=== PATIENT | female | born 1940 | race Caucasian/White ===

== ENCOUNTER 2017-05-24 11:26 | Inpatient (IN) | payer OTHER ==
[~2017-05-24] VITALS: Ht 154.9 cm; Wt 50.4 kg
--- NOTE | ~2017-05-24 | PR ---
[place], [place] PROGRESS NOTE NAME: KIMBERLY STRINGER UNIT #: [id number] ROOM: 410 DOCTOR: DEON AGUILLONANTHONY Marquise BIRTHDATE: [birth year] DOS: 06/04/2017 SUBJECTIVE: The patient was seen in followup of acute kidney injury. Overall, she is doing about the same, continues to be acute, repeats the same questioning, tells me about 3 times that her father had colon cancer, does not understand that she is still requiring dialysis, and wants to go home. No plans for her abnormal urine and free light chains have been identified yet. According to reports, the patient's sister in the family just and they will be leaving to go to [place] for services this weekend. She is seen while undergoing dialysis #3. PHYSICAL EXAMINATION: VITAL SIGNS: 98.4, 76, 18, 158/78, 99%. GENERAL: Chronically ill appearing, weak, awake and answers questions questionably reliable. No acute stress. LUNGS: Clear bilaterally, no audible rales or wheeze. CARDIOVASCULAR: Regular rate. No audible rub. ABDOMEN: Soft, nontender, nondistended. EXTREMITIES: Without cyanosis or clubbing. Trace edema is present and improving. LABORATORY DATA AND DIAGNOSTICS: White blood cell count 3.7, hemoglobin 8.6, platelets 80,000 and stable. Sodium 134, potassium 4.2, chloride 98, bicarbonate 28, BUN 35, creatinine 6.82. Glucose 85. Calcium 8.3, bilirubin 0.7, AST 21, ALT 8, alkaline phosphatase 43, albumin 2.4. Total protein 5.9. 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 Continue 3 times a week dialysis until further discussions with family can be had and long-term outcome discussion is done. Given her poor intake and dementia history, the penitentiary success of dialysis will be very poor. Her consistent asking of dialysis and not wanting it in general portends a poor prognosis as well. Would recommend when the family arrive again that we consider potentially moving towards a comfort strategy. [place], [place] PROGRESS NOTE NAME: KIMBERLY STRINGER UNIT #: [id number] ROOM: 410 DOCTOR: ANTHONY CHAVARRIA MD BIRTHDATE: [birth year] ANTHONY CHAVARRIA MD CM:PNTRANS [id number] ANTHONY CHAVARRIA MD 06/05/17 0006 interface
--- NOTE | ~2017-05-24 | PR ---
[place], [place] PROGRESS NOTE NAME: KIMBERLY STRINGER UNIT #: [id number] ROOM: 410 DOCTOR: ANTHONY CHAVARRIA MD BIRTHDATE: [birth year] DOS: NEPHROLOGY PROGRESS NOTE SUBJECTIVE: The patient was seen in followup of severe renal failure. She continues to be sitting upright in a chair, not able to provide any reliable history or review of systems. She is nonverbal, non-communicative with me. Vital signs are otherwise stable. She had periods of tachycardia, which are improved. OBJECTIVE: VITAL SIGNS: Temperature 98.7, 87, 20. 148/90, 99% on room air. GENERAL: Otherwise well-developed, well nourished, sitting in chair, nonverbal. LUNGS: Clear, decreased air entry secondary to effort. HEENT: Sclerae are anicteric. Oropharynx is slightly dry. NECK: No JVD or lymphadenopathy. ABDOMEN: Benign. No rebound. No guarding. EXTREMITIES: Lower extremities with 2+ edema, probably partially at least because she is sitting in a chair for a prolonged period. LABORATORY DATA AND DIAGNOSTICS: White blood cell count 5, hemoglobin 11, platelets 58. Sodium 134, potassium 4.2, chloride 195, bicarbonate 21, BUN 109, creatinine 13.6 and stable, EGFR 3, glucose 102, calcium 8.8, phosphorus 7.1, magnesium 2.1. ASSESSMENT AND PLAN: Acute kidney injury/chronic kidney disease. 07/23/2014 showed creatinine of 0.8. Current serologic workup is pending. I do not see if there is an acute discovery of chronic kidney disease here, but certainly that is a possibility as well as glomerulonephritis. Given her dementia and poor mental status, which does not appear to be completely new phenomenon, I would avoid invasive procedure such as biopsy and plan for dialysis initiation, which the family and son had agree to over the weekend. Access is not yet possible as Interventional Radiology is not here today. Discussed with the nurse to ensure that from a hematologic standpoint, such as thrombocytopenia that she can get the procedure done, so that we can initiate dialysis tomorrow. She is not going to be able to go home and live by herself anymore. I suspect that time limited trial of dialysis is the best course of action. If there is any significant worsening in her clinical status, withdrawal is not unreasonable. Followup for her cytopenia is by Hematology and hypertension. ____ started on dialysis with hyperphosphatemia, we will need to follow with addition of dialysis and phosphorus binder, though she is not eating at all it seems. She had a fairly large ulcer seen on gastrointestinal. They have started Carafate in short term. This is probably okay, but I do like to use this in renal failure patients for more than about a week given possibilities of accumulation of toxic ____. [place], [place] PROGRESS NOTE NAME: KIMBERLY STRINGER UNIT #: [id number] ROOM: 410 DOCTOR: ANTHONY CHAVARRIA MD BIRTHDATE: [birth year] ANTHONY CHAVARRIA MD CM:PNTRANS [id number] ANTHONY CHAVARRIA MD 05/31/17 1553 interface
--- NOTE | ~2017-05-24 | O ---
[place], [place] OPERATIVE NOTE NAME: KIMBERLY STRINGER UNIT #: [id number] ROOM: 410 DOCTOR: ALEXANDR HERNANDEZ MD BIRTHDATE: [birth year] DOS: 05/28/2017 GASTROENDOSCOPIC REPORT. INDICATIONS: A 77-year-old patient who has presented with chief complaint of anemia, thrombocytopenia, GI bleed, guaiac positivity, drop in H and H. Hematology is following up on the patient and we have been asked for assessment of the anemia. We have transfused the patient one unit 6 pack of platelets. PAST MEDICAL HISTORY: Hyperglycemia, metabolic encephalopathy, history of renal insufficiency. PAST MEDICAL HISTORY: Hypertension, dementia, thrombocytopenia. PAST SURGICAL HISTORY: None. SOCIAL HISTORY: Nonsmoker, nonalcohol consumer. FAMILY HISTORY: Noncontributory. ALLERGIES: No known medication. PROCEDURE: Today's procedure part of investigation is panendoscopy plus biopsy. PREMEDICATION: Versed and Diprivan. SCOPE: Olympus forward-viewing gastroscope Q10 video. REPORT: After putting the patient in the left lateral position and after application of lubricant to the scope, the scope was introduced; thereafter, under direct visualization, advanced through the length of esophagus without difficulty. A small hiatal hernia was noticed. Gastric pouch was entered. Numerous spots of degraded blood in the gastric pouch consistent with superficial hemorrhagic gastritis, erosions was identified, photographed and biopsied. Biopsy from antrum was obtained. Duodenal bulb, second and third part within normal limits. The patient extubated, tolerated the procedure well. IMPRESSION: Superficial hemorrhagic gastritis, gastric erosions status post biopsy, presence of blood in the stomach, small hiatal hernia. PLAN AND DISCUSSION: Protonix 40 mg 1 every day, Carafate 1 gram before meals and at bedtime, back to soft to regular as tolerated and clinical reassessment. Thank you very much indeed. [place], [place] OPERATIVE NOTE NAME: KIMBERLY STRINGER UNIT #: [id number] ROOM: 410 DOCTOR: ALEXANDR HERNANDEZ MD BIRTHDATE: [birth year] ALEXANDR HERNANDEZ MD CM:JASONECORD:OPERATIVE NOTE [id number] ALEXANDR HERNANDEZ MD 05/29/17 0544 interface
--- NOTE | ~2017-05-24 | CON ---
[place], [place] REPORT OF CONSULTATION NAME: KIMBERLY STRINGER UNIT #: [id number] ROOM: 410 DOCTOR: SHANNA REYES DO BIRTHDATE: [birth year] DOS: 05/25/2017 REASON FOR CONSULTATION: Acute kidney injury. HISTORY OF PRESENT ILLNESS: A 77-year-old female, extremely poor historian, has a prior history of hypertension, hyperlipidemia, dementia, glaucoma, paranoid schizophrenia, has not seen a physician in many, many years and does not take any medications either, presents to this institution with her family due to increased confusion. Apparently, she has been not caring for herself at home, eating very poorly if at all, becoming increasingly confused as noted as well. Chronically forgetful, unclear if this is any different. ____ approximately a 15-pound weight gain over the preceding two and half months, but per the family, as they have been bringing her in food the past few weeks, she has gained a few pounds. Family feels as they have been monitoring the food in the refrigerator as well as her garbage and utensils in the kitchen were, that she has not been eating at all, but other than this, they are unaware of any specific complaints other than some chronic abdominal pain which she states she gets when she "eats too much." The patient herself states that she feels quite well and everything has been perfectly fine. She feels her appetite has been fine here, had been fine up to this admission and denies any complaints other than that chronic abdominal pain that she already noted. She denies any hematochezia or melena, any nausea, vomiting or diarrhea, fevers, chills, rigors, diaphoresis, chest pain, palpitations, orthopnea, PND or dyspnea. She denies any claudication. She denies hematuria. She denies froth in her urine. She denies any difficulty voiding, denies symptoms of colic, or pass calculi. She denies rash. She apparently uses [id number] NSAIDs, but only rarely, has not been exposed to other potential nephrotoxic agents. On presentation to the Emergency Room, she was afebrile, hemodynamically stable, saturating at 99% on room air. ADMISSION LABORATORY: Notable for BUN and creatinine at 144 and 14.1. Chemistry: Total protein was elevated at 8.7 with albumin of 3.7 with normal corrected calciums. White count 4.5 with hemoglobin of 9.0, normal differential. Urine chemistries obtained in the Emergency Room showed a sodium of 73 with a creatinine of 64.9 and total protein 142.4, total protein to creatinine ratio was 2.19. Urinalysis from the Emergency Room did show 2+ protein with 2+ blood and 1+ leukocyte esterase with 11-15 wbc's, 4+ bacteria. Note, she had to be straight catheterized for this specimen. Specific gravity was 1.010. A previous urinalysis performed in July 2014, was negative for protein, did show rbc's, wbc's and epithelial cells. Circumstances surrounding specimen's acquisition is unclear but was performed in the Emergency Room. In the Emergency Room, she underwent imaging, subsequently undergoing a CT scan of the head, which showed no acute anomalies but did note small vessel ischemic disease. CT scan of the abdomen and pelvis was performed, nodular thickening was noted involving the right major fissure. Consolidated granulomas were also noted. No bony lesions were noted. The abdomen was otherwise unremarkable. She has since undergone a renal ultrasound last evening showing symmetric kidneys, right measuring 10.9, left measuring 10.9, with increased echotexture without any hydronephrosis or masses appreciated. The bladder was partially distended at that time. She has been maintained on IV fluids and admitted with normal saline at 80 mL an hour. Followup labs from today show her renal [place], [place] REPORT OF CONSULTATION NAME: KIMBERLY STRINGER UNIT #: [id number] ROOM: [facility] DOCTOR: SHANNA REYES DO BIRTHDATE: [birth year] function slightly improved with creatinine 13.40, BUN of 136; however, bicarbonate has dropped to 19. Remaining chemistries today now show a calcium of 8.0 with an albumin of 2.7 with a normal corrected calcium, total protein of 6.6. Hemoglobin has decreased down to 7.5 with hematocrit 22.3. Since being admitted, she has remained afebrile, hemodynamically stable. Apparently, ate quite well ____ of her meal, but only ate 10% of her meal today. Total urine output since being admitted has been 805 mL with a total intake of 2345 mL. The patient is producing approximately ____ of urine overnight, but it seems to have fluctuated throughout her stay thus far. PAST MEDICAL HISTORY: As above. ALLERGIES: No known drug allergies. MEDICATIONS: Vitamin D 1000 International Units p.o. every day, B12 1000 mcg IM every day, Rocephin 1 gram IV every day, normal saline IV at 80 mL an hour. SOCIAL HISTORY: She resides at home. FAMILY HISTORY: Noncontributory. REVIEW OF SYSTEMS: See HPI. Full 10-point review of systems was performed, otherwise unremarkable. PHYSICAL EXAMINATION: VITAL SIGNS: Blood pressure is 142/64, pulse is 62, respirations 18, and temperature 97.9 degrees Fahrenheit. Weight is 42.2 kg. GENERAL: A thin elderly female, awake, alert, oriented to person only, in no apparent distress. HEAD AND NECK: Bitemporal wasting is noted. Conjunctivae are pink and moist. Oral mucosa is pink, moist. No carotid bruit, thyromegaly, adenopathy or JVD appreciated. LUNGS: Clear to auscultation and percussion. HEART: Regular without S3 or rub appreciated. There is a 2/6 systolic ejection murmur as well as a 2/6 holosystolic murmur noted. ABDOMEN: Scaphoid. Positive bowel sounds x 4, nontender, without CVA tenderness noted. No rebound, guarding or rigidity noted. No abdominal flank bruits appreciated. No mutations. Grossly nonfocal. No asterixis appreciated. EXTREMITIES: No clubbing, cyanosis or edema noted. Pulses are +2 bilateral as well as right dorsalis pedis, trace left dorsalis pedis. SKIN: Dry without rash, ulcers, lesions, or petechiae appreciated. LABORATORY DATA: From today, WBC is 4.5, hemoglobin 7.5, hematocrit 22.3, platelets are 56,000. Sodium is 135, potassium 5.5, chloride 105, CO2 of 19, BUN of 136, creatinine 15.40, glucose was 93, phosphorus 4.9, magnesium was 2.4, calcium 8.0, albumin was 2.7, total protein 6.6, ALT is 7, AST is 12, and alkaline phosphatase 34. ASSESSMENT AND PLAN: [place], [place] REPORT OF CONSULTATION NAME: VICENTEKIMBERLY PERRIN UNIT #: [id number] ROOM: 410 DOCTOR: SHANNA REYES DO BIRTHDATE: [birth year] 1. Acute kidney injury. History as noted, past known creatinine was from 2013 when her creatinine was 0.8 from a hospital stay ____ 07/2014. Unclear if current values represent acute discovery of chronic kidney disease versus an acute process. She may have been somewhat volume depleted on admission, though her fraction excretion of sodium and urinalysis do not support this hypothesis. However, history is compelling. ____ is often kept very hot per the patient's family. For the chronic kidney disease, it is unclear what her baseline is. She currently does not exhibit any specific uremic signs or symptoms. The forgetfulness has apparently been longstanding in duration. Potential causes of chronic kidney disease include hypertensive nephrosclerosis. Our initial thought is that this could represent an underlying monoclonal gammopathy, especially in light of the elevated total protein to albumin ratios. CT scan did not show any evidence of any lesions in her bones and calcium levels are normal. 2. Hypertension. Blood pressure under satisfactory control. 3. Pancytopenia of unclear etiology. RECOMMENDATIONS: Agree with current management including current intravenous fluids. We will follow intake and output as well as renal function and electrolytes closely as well as hemoglobin and hematocrit. Given her anemia, we will check an SPEP ____ and serum free light chains with guaiac stools x 3. Check iron stores, also B12 and folate level. Consider Hematology/Oncology consult as well. Currently, there is no immediate need for renal placement therapy. The issue of dialysis was discussed with her family and they are agreeable if necessary. I did explain the concept of dialysis in detail to the patient. She did not offer whether she would be willing to accept this or not. She is incompetent in making a decision, but will need her cooperation to proceed. Thank you for allowing us to participate in the care of this patient. SHANNA REYES DO CM:CONSTR:REPORT OF CONSULTATION 1223 05/26/17 0252 interface
--- NOTE | ~2017-05-24 | CON ---
[place], [place] REPORT OF CONSULTATION NAME: KIMBERLY STRINGER UNIT #: [id number] ROOM: 410 DOCTOR: ALON NAVARRETE BIRTHDATE: [birth year] DOS: 06/05/2017 HISTORY OF PRESENT ILLNESS: This is a followup to Dr. Rodarte's assessment of the patient. At that time, she was to be discharged to one of our nursing facilities, I think [place] where we were going to follow up with her. He had initially diagnosed her with major depression, recurrent to rule out some psychotic features. She was then seen by Dr. Marcus after discussing with family that she has had some mild dementia along with history of some paranoid schizophrenia and he deemed her not competent to make informed health decisions. She can get quite agitated at night. When I walked into the room, she was trying to get dressed with her IVs saying she was going home, she does not have insurance. She is not a good historian. PLAN: I am going to make some adjustments to her medications, one of them includes; I am going to go ahead and start her on some Exelon and I am going to change her Risperdal from 0.5 at night to 0.5 twice a day to see if I can take the edge off her little bit and break some of the psychosis add the Risperdal to see if I can again help a little bit with her cognition, decrease some of her behaviors and go from there and then follow up with nursing and see if the plan is still to discharge her to a care home facility. TREY NAVARRETE CNP CM:CONSTR:REPORT OF CONSULTATION 1128 06/05/17 2225 interface
--- NOTE | ~2017-05-24 | CON ---
[place], [place] REPORT OF CONSULTATION [id number] UN[facility] #: [id number] ROOM: 410 DOCTOR: TANNER LEIGH MD BIRTHDATE: [birth year] DOS: 05/27/2017 HISTORY OF PRESENT ILLNESS: The patient is a pleasant 77-year-old [place]og[place] woman who presented to the Emergency Department with increased confusion over the past 3 weeks as per the records and the patient's son. Subsequently, she was admitted and treated accordingly. On routine CBC examination, she was found to be severely anemic and consulted for further evaluation and management. As per the son, she had unintentional weight loss of about 14 pounds over the past 2-1/2 months. PAST MEDICAL HISTORY: Dementia, glaucoma, hyperlipidemia, hypertension, leukopenia, chronic schizophrenia, and thrombocytopenia. PAST SURGICAL HISTORY: No pertinent surgical history. SOCIAL HISTORY: No smoking, drinking, or drug abuse. FAMILY HISTORY: Father has emphysema disease, cause unknown. Mother has history of heart disease, at age 50-60. ALLERGIES: No known allergies. MEDICATIONS: As per the records. REVIEW OF SYSTEMS: CONSTITUTIONAL: No chills. No fatigue. No fever. No loss of appetite. No night sweats. No weakness. No weight loss. HEENT: No trouble swallowing. No loss of smell. No loss of hearing. No double vision. No pain. No discharge. ENT AND RESPIRATORY: No wheeze. No sore throat. No change in voice. No hearing loss. No nose bleed. No cough. No trouble breathing through nose. No shortness of breath. No coughing up blood. No epistaxis. CARDIOVASCULAR: No chest pain. No dizziness. No irregular heartbeat. No leg edema. No pain in legs while walking. No palpitations. No shortness of breath. DERMATOLOGIC: No acne. No hives. No laceration. No mole. No rash. ENDOCRINE: No cold intolerance. No diabetes. No fatigue. No hot flashes. No polydipsia. No polyuria. No urinating frequently. No weight loss. HEMATOLOGIC AND LYMPH: No fatigue. No easy bruising. GASTROENTEROLOGIC: No change in bowel habits. No indigestion. No frequent bloating. No vomiting blood. No abdominal cramping. No nausea. No heartburn. No vomiting. No abdominal pain. No dysphagia. No diarrhea. No constipation. No blood in stool. FEMALE REPRODUCTIVE: No vaginal itching. No difficulty urinating. No heavy periods. No dyspareunia. No sexually active. No dysmenorrhea. No pelvic pain. No breast pain. No nipple discharge. No abnormal vaginal discharge. No hot flashes. MUSCULOSKELETAL: No back pain. No muscle pain or weakness. No neck pain. No tingling/numbness. No swelling/bruising. No osteoporosis treatment. OPTHALMOLOGIC: No double vision. No diminished vision. No loss of vision. [place], [place] REPORT OF CONSULTATION NAME: KIMBERLY STRINGER UNIT #: [id number] ROOM: [facility] DOCTOR: TANNER LEIGH MD BIRTHDATE: [birth year] UROLOGIC: No dysuria. No frequent nighttime urination. No irregular periods. No pain with urination. No difficulty urinating. No blood in urine. No frequent urination. No urinary incontinence. NEUROLOGIC: No loss of sensation in specific body area. No vertigo. No burning pain in feet. No trouble with balance. No trouble with coordination. No loss of consciousness. No loss of feeling/power. No confusion. No headache. No tingling/numbness. PSYCHOLOGIC: No tinnitus. No headaches. No shortness of breath. No weight decrease. No nausea. No vomiting. No abdominal discomfort. No constipation. No diarrhea. No depression. No anxiety. PHYSICAL EXAMINATION: GENERAL: Pleasant woman in no apparent distress. VITAL SIGNS: Stable. She is afebrile. Blood pressure is 153/53, respiratory rate 18, pulse 68, temperature 97.6. HEENT: Oral mucosa appears intact. The external ears are normal in appearance. Nares are patent without lesions, exudates, erythema, or inflammation. Tongue is symmetrical. Uvula is midline. NECK AND THYROID: Neck supple without palpable masses. Trachea is midline. No thyromegaly. No carotid bruit or JVD. BREASTS: Normal. Nipples unremarkable. No drainage. No lumps felt on either side. HEART: Normal S1, S2, without significant murmur, rub, or gallop. LUNGS: Clear to auscultation and percussion with good air entry bilaterally. The patient is breathing easily without the use of accessory muscles. Diaphragmatic excursions are intact. ABDOMEN: No costovertebral angle tenderness. Soft. No organomegaly or masses. Nontender. No hernias present. Liver and spleen are not palpable. LYMPHATIC: No adenopathy noted in the cervical, supraclavicular, axillary, or inguinal regions. NEUROLGIC: Nonfocal. Oriented to person, place, and time. MENTAL STATUS: Appropriate for mood and affect. PERIPHERAL PULSES: No varicosities. Femoral and pedal pulses are palpable. EXTREMITIES: Without cyanosis, clubbing, or edema. No gross anomalies. LABORATORY DATA: Sodium 135, potassium 5.1, chloride 100, bicarbonate 22, BUN 126, creatinine 12.90. AST is 10, ALT is less than 6, total bili is 0.4. White count of 4.2, hemoglobin 6.7, hematocrit 19.7, MCV 87.6, and platelets of 52,000. ASSESSMENT: 1. Pancytopenia of unknown etiology. 2. Severe anemia. 3. Acute renal failure and acute kidney failure. 4. Dehydration. 5. Vitamin B12 deficiency. PLAN: We are waiting for GI evaluation to be done, probably will be needing EGD and colonoscopy at the same time. Initial workup for thrombocytopenia and anemia has been ordered. We will wait for the workup to come back and depending [place], [place] REPORT OF CONSULTATION NAME: KIMBERLY STRINGER UNIT #: [id number] ROOM: 410 DOCTOR: TANNER LEIGH MD BIRTHDATE: [birth year] on that, further intervention. In the meantime, we will review old records. I had detailed discussion with the patient about it, seemed to understand it. Soon or later, she may also need CAT scan. Ample time was given to the patient to ask me questions. We will follow. Thanks for consulting and letting me participate in the care of this interesting patient. TANNER LEIGH MD CM:CONSTR:REPORT OF CONSULTATION 1516 05/28/17 0846 interface
--- NOTE | ~2017-05-24 | PR ---
[place], [place] PROGRESS NOTE NAME: KIMBERLY STRINGER UNIT #: [id number] ROOM: 410 DOCTOR: ERIC ONEALSHANNA BIRTHDATE: [birth year] DOS: 05/26/2017 SUBJECTIVE: The patient is more oriented today. Apparently, she now knows that she is in the hospital in [place], but did not know the name of the hospital. She states it is 2017, but believes it is September. Reportedly, she has been eating quite well without any nausea, vomiting or diarrhea. She denies orthopnea, PND or dyspnea. PHYSICAL EXAMINATION: VITAL SIGNS: Blood pressure is 144/55, pulse is 75, respirations 18, temperature 98 degrees Fahrenheit. GENERAL: A cachectic appearing female, awake, alert, oriented to person. No apparent distress. LUNGS: Clear to auscultation and percussion. HEART: Regular without S3, rub or murmur. A 2/6 holosystolic ejection murmur as noted yesterday is unchanged. ABDOMEN: Soft, positive bowel sounds x4. NEUROLOGICAL: Negative for asterixis. EXTREMITIES: No clubbing, cyanosis or edema noted. LABORATORY DATA: From today, WBC 4.6, hemoglobin 7.7, hematocrit 22.6, platelets are 59,000. Iron is 92 with TIBC of 193 and percent saturation of 57%, ferritin is 334. B12 is greater than 2000. RBC folate is pending. Sodium is 137, potassium 5.2, chloride 102, CO2 of 21, BUN of 126, creatinine 13.3, glucose is 76, calcium is 8.0, albumin of 2.6, corrected calcium of 9.1, total protein 6.6, ALT is less than 6, AST is 11, alkaline phosphatase is 36, total bilirubin is 0.5. SPEP, SIEP, UIEP and serum free light chains are pending. Stool for occult blood positive. IMPRESSION AND PLAN: 1. Acute kidney injury. No appreciable improvement in renal function thus far. Clinically, the patient appears to be euvolemic. Workup today has been unremarkable. This may be acute discovery of chronic kidney disease. Urine output has been somewhat difficult to quantify as she has been incontinent, but appears to be decreasing. Her electrolytes are all satisfactory. Not uremic at present. 2. Proteinuria of unclear etiology. Past UA is otherwise bland. Doubt underlying connective tissue disorder. 3. Hypertension. Blood pressure under fair control. 4. Pancytopenia of unclear etiology. The patient is anemic. GI was planning on possibly performing a panendoscopy. Of note, however, the patient's iron stores along with B12 levels appeared satisfactory. I feel the Hemoccult positive stools are incidental and pancytopenia may be reflective of an underlying bone marrow disorder. RECOMMENDATIONS: Continue current management including current intravenous fluids. We will follow renal function and electrolytes closely. No immediate need for renal replacement therapy. Await results of pending studies. We will check renal ultrasound as the patient may have been volume depleted at the time of the initial renal ultrasound just to again confirm hydronephrosis is not [place], [place] PROGRESS NOTE NAME: SIOMARAKIMBERLY Paulo UNIT #: [id number] ROOM: [facility] DOCTOR: SHANNA REYES DO BIRTHDATE: [birth year] present. Once again suggest a Hematology/Oncology consult given her pancytopenia. SHANNA REYES DO CM:PNTRANS [id number] SHANNA REYES DO 05/27/17 1017 interface
--- NOTE | ~2017-05-24 | PR ---
[place], [place] PROGRESS NOTE NAME: KIMBERYL STRINGER UNIT #: [id number] ROOM: 410 DOCTOR: TANNER LEIGH MD BIRTHDATE: [birth year] DOS: 05/31/2017 SUBJECTIVE: The patient is doing better. She is alert and responsive. REVIEW OF SYSTEMS HEENT: No trouble swallowing. No double vision. No loss of vision. No pain. ENT AND RESPIRATORY: No wheeze. No change in voice. No cough. No shortness of breath. No coughing up blood. No epistaxis. CARDIOLOGIC: No chest pain. No dizziness. No irregular heartbeat. No leg edema. No palpitations. No shortness of breath. HEMATOLOGIC AND LYMPH: No past transfusion. No fatigue. No loss of appetite. No easy bruising. GASTROENTEROLOGIC: No change in bowel habits. No vomiting blood. No abdominal cramping. No nausea. No vomiting. No diarrhea. No constipation. No blood in stool. FEMALE REPRODUCTIVE: No dyspareunia. No pelvic pain. MUSCULOSKELETAL: No back pain. No muscle pain or weakness. No tingling/numbness. UROLOGIC: No pain with urination. No difficulty urinating. No frequent urination. NEUROLOGIC: No burning pain in feet. No trouble with coordination. No loss of consciousness. No headache. No tingling/numbness. No memory loss. PHYSICAL EXAMINATION: GENERAL: She is a pleasant woman in no apparent distress. VITAL SIGNS: Blood pressure 148/90, respirations 20, pulse 87, temperature 98.7. HEENT: Normocephalic, atraumatic NECK AND THYROID: Supple. No JVD, thyromegaly, or lymphadenopathy. HEART: Normal S1, S2. Regular rate and rhythm. LUNGS: Clear to auscultation and percussion. ABDOMEN: Soft. Nontender, nondistended. Bowel sounds present. EXTREMITIES: Normal ROM. No clubbing. No edema. LABORATORY DATA: Sodium 134, potassium 4.2, chloride 95, bicarbonate 21, EGFR is 3. White count of 5.0, hemoglobin 11.0, hematocrit 32, platelet count of 58,000. SPEP, UPEP are pending. Platelet antibody direct and indirect were negative. Haptoglobin was 101. TIBC of 193, ____ 85, ferritin was 424.1, folic acid 11.0. ASSESSMENT: 1. Anemia of chronic disease. 2. Thrombocytopenia of unknown etiology. 3. Urinary tract infection. 4. Acute renal failure. PLAN: Her platelets are low, workup so far is negative, and will keep a close watch at this time and if it does not improve, then she may need further evaluation including a bone marrow biopsy if not done. I had detailed discussion with the patient about it, seemed to understand. [facility], [facility] are [place], [place] PROGRESS NOTE NAME: KIMBERLY STRINGER UNIT #: [id number] ROOM: 410 DOCTOR: TANNER LEIGH MD BIRTHDATE: [birth year] pending at this point. Ample time was given to the patient to ask me questions. TANNER LEIGH MD CM:PNTRANS [phone] TANNER LEIGH MD 06/01/17 0452 interface
--- NOTE | ~2017-05-24 | CON ---
[place], [place] REPORT OF CONSULTATION NAME: KIMBERLY STRINGER UNIT #: [id number] ROOM: 410 DOCTOR: ALON NAVARRETE BIRTHDATE: [birth year] DOS: 06/06/2017 SUMMARY OF VISIT: The patient assessed in her room. I discussed in length with the nursing staff regarding the patient. They did have to call me late yesterday afternoon because of increased agitation and behaviors and I ordered p.o. or IM Ativan p.r.n. and Geodon p.o. or IM p.r.n. for behaviors. They have only had to use the Ativan, but it appears from 3:00 p.m. every day, she becomes quite behavioral almost consistent with sundowning. They have talked to the son, the patient has some history of, it looks like multiple myeloma, and at one point in time, it is recommended that she goes on to palliative to care, probably need to follow up on that. Also the patient is requiring regular hemodialysis. Looks like the reason why she is not on the Behavioral Health Unit is because we were able to remove her from the unit for hemodialysis since it is a secure unit. PLAN: Since the patient is exhibiting symptoms consistent with sundowning, I am going to go ahead and order Vistaril 50 mg at 2 p.m. to see if I can head off the 3-4 p.m. sundowning to kind of take the edge off of it. She has Risperdal b.i.d. on board and when needed the Ativan has been effective in calming her down. So I am trying to keep this as simple as possible without overly sedating her, but I also do not want her pulling out her lines and excess speaking like she does in her sundowning behaviors in the afternoon. Let us see how the Vistaril does and we can go from there. TREY NAVARRETE CNP CM:CONSTR:REPORT OF CONSULTATION 1009 06/07/17 0800 interface
--- NOTE | ~2017-05-24 | CON ---
[place], [place] REPORT OF CONSULTATION NAME: KIMBERLY STRINGER UNIT #: [id number] ROOM: 410 DOCTOR: NURIA POTTS ED.D (ALINA) BIRTHDATE: [birth year] DOS: 05/31/2017 HISTORY OF PRESENT ILLNESS: The patient is a 77-year-old female who is presently on the 4th floor at [facility]. She states she is , but I believe her actually is . She has several sons, one of whom, Nader, was with me throughout the interview. The patient states she has many brothers and sisters, but did not know the number. Her parents are both . She worked for many years at [employer] in [place], [place]. She does not have a family physician and her medical history is pertinent for urinary tract infection, renal failure, metabolic encephalopathy, vitamin B deficiency, dehydration, dementia, hypertension, glaucoma, hiatal hernia and aortic stenosis. This patient was awake, alert and oriented to person only. I asked her where she was and she states said that she is in , [place]. I asked her what year it was, and she did indicate it was 2017, but she had no idea of the month. She is stating that it was August. When I continued to ask her age, she stated that she was 89 years old, even though she is only 77 years old. Her son was with us during the interview and she had no idea how old he was and she had no idea where he lived. He does live nearby, but she had no idea where he lived. She is clearly not competent to make informed healthcare decisions. She is not safe to return home and they are going to make long-term care arrangements for this patient. She was admitted to behavioral health unit under Dr. Rodarte and treated for paranoid schizophrenia, although her son said she has been paranoid for many years, but she also has severe memory loss in addition to her paranoia. She was dehydrated with the urinary tract infection, but that has cleared and she has significant memory deficits. DIAGNOSES: 1. Major neurocognitive disorder - Alzheimer's disease. 2. History of paranoid schizophrenia. RECOMMENDATIONS: 1. In my opinion, this patient is not competent to make informed healthcare decisions and all decisions should be made by her family or her healthcare surrogate. 2. The patient will probably need long-term care. Thank you very much for this consult. NURIA POTTS ED.D CM:CONSTR:REPORT OF CONSULTATION 1642 05/31/17 8167 interface JOSY ALMODOVAR DO
--- NOTE | ~2017-05-24 | PR ---
[place], [place] PROGRESS NOTE NAME: [facility]LY [facility]ER [id number] UNIT #: [id number] ROOM: 410 DOCTOR: BISMARK MEDEROS MD BIRTHDATE: [birth year] DOS: 06/01/2017 CARDIOLOGY PROGRESS NOTE SUBJECTIVE: The patient was seen at her bedside today. No one was available from the family at the time of my visit. She was lying in a position on her right side in bed and did not respond to spoken commands. She was breathing easily. PHYSICAL EXAMINATION: VITAL SIGNS: Pulse is 71 and regular, blood pressure 134/48. She is afebrile. She weighs 42.2 kg and has a body mass index of 17.6. IMPRESSION: 1. Critical aortic stenosis. 2. Gastrointestinal bleeding. 3. Acute renal failure. The patient will probably need dialysis in the very near future. 4. Essential hypertension. 5. Dementia. PLAN: The patient would benefit long-term from aortic valve replacement, but her neuropsychiatric status makes an invasive management strategy less attractive. Once her sensorium improves, we could proceed with further cardiac workup including catheterization and valve replacement in the future, but for now I think that she should be treated with very conservative medical therapy only. Cardiology will sign off and we will remain available to see her if needed. We thank the hospitalist physicians for asking our advice regarding her care. BISMARK MEDEROS MD CM:PNTRANS [id number] BISMARK MEDEROS MD 06/02/17 1546 interface
--- NOTE | ~2017-05-24 | PR ---
[place], [place] PROGRESS NOTE NAME[id number] UNIT #: [id number] ROOM: 410 DOCTOR: BISMARK MEDEROS MD BIRTHDATE: [birth year] DOS: 05/31/2017 CARDIOLOGY PROGRESS NOTE SUBJECTIVE: The patient was seen at her bedside today. No family was available at the time. She is sitting at the side of the bed and appears comfortable. She does not appear to be dyspneic or in any pain. She denied feeling lightheaded or nauseous or having any palpitations. Earlier today, she was noted to have a rapid heart rate of about 150. Review of monitor strips show that she did have a short episode of paroxysmal atrial fibrillation. PHYSICAL EXAMINATION: VITAL SIGNS: Today pulse is 100 and regular, blood pressure is 103/77. She is afebrile. NECK: Supple. She has palpable carotids with slow upstrokes bilaterally. She has no jugular distention. LUNGS: Respirations are unlabored. Her chest has decreased breath sounds at the bases, but is otherwise clear. HEART: Has a regular rhythm. She has a grade 4/6 late peaking systolic ejection murmur along the left sternal border. The second heart sound is obscured. The PMI is displaced slightly laterally. There is no precordial thrill. EXTREMITIES: Showed trace edema. Pedal pulses are absent. LABORATORY DATA: Hemoglobin today is 11.0 after transfusion, white count is 5000, platelet count 58,000. INR 1.0. Sodium 134, potassium 4.2, BUN 109, creatinine 13.6. IMPRESSION: 1. Critical aortic stenosis. 2. Gastrointestinal bleeding. 3. Acute renal failure. The patient is approaching the need for dialysis. 4. Essential hypertension. 5. Dementia. PLAN: In her current state, the patient is not a candidate for aggressive cardiac evaluation and management; however, if her neurologic condition improves and her family desires it, we could consider catheterization and possible valve replacement in the future. For now; however, I think that stabilization of her other medical problems including her urinary tract infection and acute renal failure is primary. As noted, once her sensorium clears as much as possible, we can decide whether or not she would be a candidate for catheterization and valve replacement. We will continue to follow her with her primary physicians and we thank the hospitalist for asking our advice regarding her care. [place], [place] PROGRESS NOTE NAME: KIMBERLY STRINGER UNIT #: [id number] ROOM: 410 DOCTOR: BISMARK MEDEROS MD BIRTHDATE: [birth year] BISMARK MEDEROS MD CM:PNTRANS [id number] BISMARK MEDEROS MD 06/02/17 1558 interface
--- NOTE | ~2017-05-24 | PR ---
[place], [place] PROGRESS NOTE NAME: KIMBERLY STRINGER UNIT #: [id number] ROOM: 410 DOCTOR: EULOGIO STEPHEN MDUEL Hari BIRTHDATE: [birth year] DOS: 05/29/2017 SUBJECTIVE: The patient was seen and examined. She is awake and alert. She denies any major complaints. She denies shortness of breath. She denies nausea or vomiting. She is receiving IV fluids and appears comfortable. She was not wearing oxygen. MEDICATIONS: Reviewed. PHYSICAL EXAMINATION: VITAL SIGNS: Temperature 98.7, pulse 68, respirations 18, blood pressure 140/56. HEENT: Shows no JVD. LUNGS: Clear. No wheezing or rales. HEART: Normal S1, S2. There was a questionable murmur as well as a questionable friction rub. ABDOMEN: Soft, nontender. I do not appreciate organomegaly. EXTREMITIES: Had no edema. SKIN: Showed no rash. NEUROLOGIC: Showed no focal findings. She was pleasantly demented. LABORATORY DATA: Hemoglobin 8.5, white count of 3.5, platelets of 64. Sodium 136, potassium 4.3, CO2 of 21, BUN 111, creatinine of 12.7, calcium 7.8, phosphorus 7.1, magnesium of 2.1. ASSESSMENT AND PLAN: 1. Acute versus chronic kidney disease. The patient's true baseline creatinine is not clear. I did note labs from July 2014, which showed a creatinine level of 0.8. I suspect this is likely all acute due to an unclear etiology. She has proteinuria with pancytopenia and there is a question of a possible monoclonal gammopathy. The workup is pending. The patient apparently is being prepped for dialysis. According to the notes, there are plans for dialysis catheter to be placed on Wednesday. I did not have confirmation of this. We will continue to follow her progress. She has had slow improvement in her creatinine, but nothing significant. At this point, I would recommend discontinuing IV fluids. She does have proteinuria with microscopic hematuria. A glomerular nephritis/ glomerular disease is a possibility. Recent renal ultrasound showed no hydronephrosis with symmetrical kidneys and increased echogenicity suggesting an element of chronic renal disease. 2. Pancytopenia. She is being seen by hematology. SPEP is pending. She likely will require erythropoietin stimulating agents. We will continue to monitor and transfuse as felt needed. 3. Hypertension. Continue medications. 4. Hyperphosphatemia. Would add a phosphorus binder. 5. History of dementia. Psychiatry is seeing the patient. Going forward as noted, with her underlying dementia, I am not clear if she would be the best dialysis candidates. It is not clear if this is acute versus chronic and if there is any reversible elements of her renal injury. We can certainly consider dialysis for a period of time and decide on long-term [place], [place] PROGRESS NOTE NAME: KIMBERLY STRINGER UNIT #: [id number] ROOM: 410 DOCTOR: HAILEE AGUILLON,LUTHER Noriega BIRTHDATE: [birth year] dialysis going forward. LUTHER STEPHEN MD CM:PNTRANS [phone] LUTHER STEPHEN MD 05/31/17 1112 interface
--- NOTE | ~2017-05-24 | PR ---
[place], [place] PROGRESS NOTE NAME: KIMBERLY STRINGER UNIT #: [id number] ROOM: 410 DOCTOR: ANTHONY CHAVARRIA MD BIRTHDATE: [birth year] DOS: 06/02/2017 SUBJECTIVE: The patient was seen and evaluated in followup of acute kidney injury. She continues to have overall minimal response in this with relationship to her medical problems, very poor p.o. intake continues. She underwent her first dialysis treatment overnight, became a little bit more confused at times, but this has been her baseline it seems. She is not able to provide any reliable medical history or review of systems to me. PHYSICAL EXAMINATION: VITAL SIGNS: Temperature 98.5, 85, 18, 152/56. GENERAL: Week, ill-appearing, debilitated woman, lying in bed in no acute distress from breathing standpoint. EXTREMITIES: Lower extremity edema is improving slowly. ABDOMEN: Soft, nontender. No rebound or guarding. LABORATORIES AND DIAGNOSTICS: Sodium 138, potassium 3.9, chloride 97, bicarbonate 28, BUN 59, creatinine 9.06, glucose 76, calcium 8.1. Hepatitis status is negative. ASSESSMENT AND PLAN: Acute kidney injury. Continue hemodialysis, first treatment yesterday. Next treatment will be today and plan for a day off tomorrow and next treatment will be on Wednesday and continue likely Wednesday, Wednesday and Wednesday schedule. Continue to discuss with family about long-term options and hematology followup regarding her abnormal urine protein electrophoresis and lambda light chains. ANTHONY CHAVARRIA MD CM:PNTRANS [id number] ANTHONY CHAVARRIA MD 06/05/17 0407 interface
--- NOTE | ~2017-05-24 | PR ---
[place], [place] PROGRESS NOTE NAME: KIMBERLY STRINGER UNIT #: [id number] ROOM: 410 DOCTOR: ANTHONY CHAVARRIA MD BIRTHDATE: [birth year] DOS: 06/01/2017 SUBJECTIVE: The patient was seen and evaluated in followup of acute kidney injury. She continues to have no improvement in renal function, plans for dialysis. We will continue but access is awaiting. OBJECTIVE: VITAL SIGNS: 95/77, 16, 84, 98.3. GENERAL: She is more verbal than she was for me in the prior days, but confusion continues, cachectic. EXTREMITIES: Lower extremity edema is unchanged. ABDOMEN: Soft, nontender. No rebound, no guarding. No CVA tenderness. LABORATORIES AND DIAGNOSTICS: Reviewed from the electronic medical record. Sodium 136, potassium 4.7, chloride 98, bicarbonate 23, BUN 113, creatinine 14.3. ASSESSMENT AND PLAN: Severe acute kidney injury, likely end-stage renal disease now. Etiology is unclear. Possibilities of light-chain deposition disease as UPEP is positive, possibly for a lambda white chain. Await dialysis catheter insertion and plan for first treatment today with 2-hour inefficient treatment, so that we try to avoid dialysis disequilibrium. Thank you very much for the consult. We will continue to follow, plan for another treatment tomorrow. ANTHONY CHAVARRIA MD CM:PNTRANS [id number] ANTHONY CHAVARRIA MD 06/05/17 0051 interface
--- NOTE | ~2017-05-24 | PR ---
[place], [place] PROGRESS NOTE NAME: KIMBERLY STRINGER UNIT #: [id number] ROOM: 410 DOCTOR: TANNER LEIGH MD BIRTHDATE: [birth year] DOS: 05/28/2017 PHYSICAL EXAMINATION: VITAL SIGNS: Stable. Blood pressure is 143/60, respirations 18, pulse was 77 and temperature is 97.8. HEENT: Normocephalic, atraumatic NECK AND THYROID: Supple. No JVD, thyromegaly, or lymphadenopathy. HEART: Normal S1, S2. Regular rate and rhythm. LUNGS: Clear to auscultation and percussion. ABDOMEN: Soft. Nontender, nondistended. Bowel sounds present. EXTREMITIES: Normal ROM. No clubbing. No edema. LABORATORY DATA: White count of 5.0, hemoglobin 9.0, hematocrit 26.5, platelet count of 56,000. ASSESSMENT: 1. Anemia of chronic disease. 2. Thrombocytopenia. PLAN: The patient for EGD as well as workup for thrombocytopenia ____ has been initiated depending on that, further intervention. TANNER LEIGH MD CM:PNTRANS [id number] TANNER LEIGH MD 05/29/17 0535 interface
--- NOTE | ~2017-05-24 | PR ---
[place], [place] PROGRESS NOTE NAME: KIMBERLY STRINGER [id number] UNIT #: [id number] ROOM: 410 DOCTOR: TANNER LEIGH MD BIRTHDATE: [birth year] DOS: 06/01/2017 SUBJECTIVE: The patient is doing better. She is awake, alert and responsive. REVIEW OF SYSTEMS HEENT: No trouble swallowing. No double vision. No loss of vision. No pain. ENT AND RESPIRATORY: No wheeze. No change in voice. No cough. No shortness of breath. No coughing up blood. No epistaxis. CARDIOLOGIC: No chest pain. No dizziness. No irregular heartbeat. No leg edema. No palpitations. No shortness of breath. HEMATOLOGIC AND LYMPH: No past transfusion. No fatigue. No loss of appetite. No easy bruising. GASTROENEROLOGIC: No change in bowel habits. No vomiting blood. No abdominal cramping. No nausea. No vomiting. No diarrhea. No constipation. No blood in stool. FEMALE REPRODUCTIVE: No dyspareunia. No pelvic pain. MUSCULOSKELETAL: No back pain. No muscle pain or weakness. No tingling/numbness. UROLOGIC: No pain with urination. No difficulty urinating. No frequent urination. NEUROLOGIC: No burning pain in feet. No trouble with coordination. No loss of consciousness. No headache. No tingling/numbness. No memory loss. PHYSICAL EXAMINATION: GENERAL: She is a pleasant woman, in no apparent distress. VITAL SIGNS: Stable. She is afebrile. HEENT: Normocephalic, atraumatic NECK AND THYROID: Supple. No JVD, thyromegaly, or lymphadenopathy. HEART: Normal S1, S2. Regular rate and rhythm. LUNGS: Clear to auscultation and percussion. ABDOMEN: Soft. Nontender, nondistended. Bowel sounds present. EXTREMITIES: Normal ROM. No clubbing. No edema. LABORATORY DATA: White count of 4.0, hemoglobin 9.0, hematocrit 26.0, platelet count of 59,000. ASSESSMENT: 1. Pancytopenia of unknown etiology, probably bone marrow suppression though less likely. 2. Urinary tract infection. 3. Acute renal failure. 4. Vitamin B12 deficiency. PLAN: We will wait for her overall condition to improve. If not, then she will need a bone marrow biopsy. I will follow counts for now. [place], [place] PROGRESS NOTE NAME: KIMBERLY STRINGER UNIT #: [id number] ROOM: 410 DOCTOR: TANNER LEIGH MD BIRTHDATE: [birth year] TANNER LEIGH MD CM:MEGAN [phone] TANNER LEIGH MD 06/01/17 1255 interface
--- NOTE | ~2017-05-24 | CON ---
[place], [place] REPORT OF CONSULTATION NAME: KIMBERLY STRINGER UNIT #: [id number] ROOM: 410 DOCTOR: NALINI HOWELL MD BIRTHDATE: [birth year] DOS: 05/27/2017 PSYCHIATRIC CONSULT CHIEF COMPLAINT: "I just want to go home." HISTORY OF PRESENT ILLNESS: This is a 77-year-old white female who presented to the Emergency Room at [facility] from her home via EMS accompanied by her 2 sons. The patient presented with increased confusion over the last 3 weeks. The patient apparently has a history per the chart of having schizophrenia as well as dementia. Sons did report upon admission that she has been increasingly more confused at home and not attending to her ADLs. She has had an unintentional weight loss of approximately 14 pounds in the last 2-1/2 months, and while they have been monitoring her consumption of groceries and garbage, they have not found her to be cooking or eating well at home. In addition to the multiple medical problems that brought her in, the patient has had a fluctuation in mental status since then. In discussing the case with the nursing staff, they note, at times she is alert and oriented x 3 and at other times she is totally disoriented. PAST MEDICAL HISTORY: Significant for hyperlipidemia, hypertension, glaucoma, thrombocytopenia, renal failure and severe anemia. MENTAL STATUS EXAMINATION: This morning with me, the patient was alert and oriented to person, place and time. She reports that she has been here approximately 5 days and is anxious to return home. Likewise, she was able to recount her address as well as the fact that she does live alone. Of note, the patient reports a history of good sleep and appetite; however, her breakfast tray was hardly touched and was sitting there unattended. The patient was somewhat guarded and tended to minimize all questions and was focused primarily on leaving the hospital and returning home. She is somewhat flat and blunted with a constricted range of her affect and did at times appear quite sad and despondent. There was, however, no overt signs of auditory or visual hallucinations. There are no voice delusions and other than being somewhat guarded there were no signs or paranoia. Her memory was fairly well intact this morning. DIAGNOSIS: Major depression, recurrent, rule out with psychotic features. PLAN: I will go ahead and discontinue her Restoril in lieu of Remeron. This should aid sleep and appetite. Additionally, I will check a serum ammonia level. She may benefit from a cholinesterase inhibitor, however, I would monitor. It is possible that with the antidepressant alone, this will improve cognition. She is slated to possibly go to a 30-day rehab. If she is going to [facility], I will be able to follow her there. [place], [place] REPORT OF CONSULTATION NAME: SIOMARAKIMBERLY Paulo UNIT #: [id number] ROOM: 410 DOCTOR: NALINI HOWELL MD BIRTHDATE: [birth year] NALINI HOWELL MD CM:CONSTR:REPORT OF CONSULTATION 0934 05/27/17 0947 interface
--- NOTE | ~2017-05-24 | PR ---
[place], [place] PROGRESS NOTE NAME: KIMBERLY STRINGER UNIT #: [id number] ROOM: 410 DOCTOR: ANTHONY CHAVARRIA MD BIRTHDATE: [birth year] DOS: 06/03/2017 TIME OF SERVICE: 12:05 p.m. The patient is seen somnolent at this time. She was having some delirious agitation, was given Ativan. She is currently sedated, was not waking her because of this. No other reported events, no oral intake still and she remains confused. No followup yet from Hematology about her possible . VITAL SIGNS: 98.4, 109, 20, 170/86. This was when she was agitated. Exam is deferred as above. LABORATORIES AND DIAGNOSTICS: White blood cell count 3.3, hemoglobin 9.1, platelets 72,000. Sodium 136, potassium 4.1, chloride 100, bicarbonate 27, BUN 26, creatinine 5.38, calcium 8.9. ASSESSMENT AND PLAN: Severe acute kidney injury, dialysis dependence. Continue to follow up with plans for 3 times a week dialysis, next treatment will be tomorrow. She is a poor candidate for kidney biopsy and acute treatment. If this is myeloma, her dementia would likely limit a lot of these available therapies and her compliance will be very poor. She only wants to go home and does not want to listen to rationale about why she is in the hospital, what treatments she is actually undergoing such as dialysis. She just repeats questioning that she can while she was on treatment yesterday. We will continue to follow her for right now, supportive care and my discussion with Dr. Tavarez included involvement of palliative services, perhaps. ANTHONY CHAVARRIA MD CM:PNTRANS [phone] ANTHONY CHAVARRIA MD 06/05/17 0011 interface
--- NOTE | ~2017-05-24 | PR ---
[place], [place] PROGRESS NOTE NAME: KIMBERLY STRINGER UNIT #: [id number] ROOM: 410 DOCTOR: ERIC SHANNA BIRTHDATE: [birth year] DOS: 05/27/2017 SUBJECTIVE: The patient offers no complaints today. Apparently, she does remain confused and forgetful, but does note as well as today that she is at [facility]. Appetite has been reportedly good. No reports of nausea, vomiting, diarrhea, orthopnea, PND or dyspnea. PHYSICAL EXAMINATION: VITAL SIGNS: Blood pressure is 153/63, pulse of 68, respirations 18, temperature is 97.6 degrees Fahrenheit. GENERAL APPEARANCE: A thin elderly female, awake, alert, oriented to person and place. No apparent distress. HEAD AND NECK: Bitemporal wasting is noted. There is no JVD appreciated. CHEST: Lungs are clear to auscultation and percussion. HEART: Regular without S3 or rub appreciated. There is a 2/6 holosystolic murmur as well as a 2/6 systolic ejection murmur, unchanged from the past. ABDOMEN: Soft with positive bowel sounds x 4. NEUROLOGICAL: Negative for asterixis. EXTREMITIES: No clubbing, cyanosis. There is no edema noted. LABORATORY DATA: From today, sodium is 135, potassium 5.1, chloride 100, CO2 of 22, BUN 126, creatinine 12.9, glucose is 82, phosphorus 5.7, calcium 7.7, albumin is 2.2, corrected calcium is 1.1. WBC is 4.2, hemoglobin 6.7, hematocrit 19.7, platelets are 62,000. Renal ultrasound from May 26 shows symmetric kidneys, right measuring 10.7, left measuring 10.5. Increased echotexture is noted. There is no hydronephrosis. There are no masses appreciated. ASSESSMENT: 1. Acute kidney injury, suspect this is an acute discovery of chronic kidney disease. Minimal improvement in renal function thus far. Currently, her electrolytes remain satisfactory and she remains euvolemic. She is not exhibiting any uremic signs or symptoms at present, but appears that hemodialysis will be necessary. Workup is ongoing for possible monoclonal gammopathy, results of which are still pending. 2. Proteinuria, unclear etiology. Past urinalysis was bland. Doubt underlying connective tissue disorder. Monoclonal evaluation for an underlying monoclonal gammopathy is in progress. SPEP, SIEP, UIEP and serum free light chains are pending. 3. Hypertension. Blood pressure remains under fair to slightly suboptimal control today. 4. Pancytopenia of unclear etiology. Her hemoglobin has dropped further today. She is in the process of receiving packed red blood cell transfusion. Hematology/Oncology consult has been ordered is thus far pending. RECOMMENDATIONS: Continue current management. We will decrease the IV fluid rate to KVO. Follow renal function and electrolytes closely. Again, as noted, no immediate need for renal replacement therapy. The patient is willing to start renal replacement therapy. Per the nursing staff, the patient's family is agreeable as well. [place], [place] PROGRESS NOTE NAME: KIMBERLY STRINGER UNIT #: [id number] ROOM: [facility] DOCTOR: SHANNA REYES DO BIRTHDATE: [birth year] However, given her anemia and pancytopenia, these will need to be corrected before a tunneled dialysis catheter can be placed and dialysis initiated. Await Hematology/Oncology consultation. Thank you for allowing us to participate in the care of the patient. SHANNA REYES DO CM:MEGAN [id number] SHANNA REYES DO 05/28/17 0958 interface
--- NOTE | ~2017-05-24 | PR ---
[place], [place] PROGRESS NOTE NAME: KIMBERLY STRINGER UNIT #: [id number] ROOM: 410 DOCTOR: TANNER LEIGH MD BIRTHDATE: [birth year] DOS: 06/08/2017 VITAL SIGNS: Blood pressure 104/47, respirations 18, pulse 93, temperature 97.8. REVIEW OF SYSTEMS: HEENT: No trouble swallowing. No double vision. No loss of vision. No pain. ENT AND RESPIRATORY: No wheeze. No change in voice. No cough. No shortness of breath. No coughing up blood. No epistaxis. CARDIOLOGIC: No chest pain. No dizziness. No irregular heartbeat. No leg edema. No palpitations. No shortness of breath. HEMATOLOGIC AND LYMPH: No past transfusion. No fatigue. No loss of appetite. No easy bruising. GASTROENTEROLOGIC: No change in bowel habits. No vomiting blood. No abdominal cramping. No nausea. No vomiting. No diarrhea. No constipation. No blood in stool. FEMALE REPRODUCTIVE: No dyspareunia. No pelvic pain. MUSCULOSKELETAL: No back pain. No muscle pain or weakness. No tingling/numbness. UROLOGIC: No pain with urination. No difficulty urinating. No frequent urination. NEUROLOGIC: No burning pain in feet. No trouble with coordination. No loss of consciousness. No headache. No tingling/numbness. No memory loss. PHYSICAL EXAMINATION HEENT: Normocephalic, atraumatic NECK AND THYROID: Supple. No JVD, thyromegaly, or lymphadenopathy. HEART: Normal S1, S2. Regular rate and rhythm. LUNGS: Clear to auscultation and percussion. ABDOMEN: Soft. Nontender, nondistended. Bowel sounds present. EXTREMITIES: Normal ROM. No clubbing. No edema. ASSESSMENT: 1. Acute renal failure. 2. Pancytopenia. 3. Monoclonal gammopathy. PLAN: The patient probably will be going to hospice and comfort and ____ will be done. If hemoglobin and hematocrit drops or anything new ____ further intervention. [place], [place] PROGRESS NOTE NAME: KIMBERLY STRINGER UNIT #: [id number] ROOM: 410 DOCTOR: TANNER LEIGH MDDATE: [birth year] TANNER LEIGH MD CM:MEGAN [id number] TANNER LEIGH MD 06/09/17 0532 interface
[2017-05-24 11:52] VITALS: BP 163/77
[2017-05-24 12:12] LABS: BASO % 0.2 % (0.0-1.0); EOS # 0.2 10*3/uL (0.0-0.4); EOS % 4.2 % (1.0-4.0); HEMATOCRIT 26.7 % (37.0-47.0); LYMPH # 0.9 10*3/uL (1.3-4.4); LYMPH % 20.8 % (27.0-41.0); MEAN CELL VOLUME 88.7 fl (81.0-99.0); MEAN CORPUSCULAR HGB 29.9 pg (27.0-31.0); MEAN CORPUSCULAR HGB CONC 33.7 g/dl (33.0-37.0); MEAN PLATELET VOLUME 10.9 fl (9.6-12.3); MONO # 0.2 10*3/uL (0.1-1.0); MONO % 4.4 % (3.0-9.0); NEUT # 3.2 10*3/uL (2.3-7.9); PLATELET COUNT AUTOMATED 66 10*3/uL (130-400); RED BLOOD COUNT 3.01 10*6/uL (4.10-5.10); RED CELL DISTRI WIDTH 13.7 % (0-14.5); WHITE BLOOD COUNT 4.5 10*3/uL (4.8-10.8)
[2017-05-24 12:27] LABS: ALBUMIN 3.7 gm/dl (3.1-4.5); ALKALINE PHOSPHATASE 43 U/L (45-117); BUN 144 mg/dl (7-24); CHLORIDE 97 mmol/L (98-107); MAGNESIUM 2.6 mg/dL (1.5-2.1); POTASSIUM 5.5 mmol/L (3.5-5.1); SGOT/AST 14 IU/L (3-35); SGPT/ALT 10 U/L (12-78); SODIUM 133 mmol/L (136-145); TOTAL PROTEIN 8.7 gm/dL (6.4-8.2)
[2017-05-24 12:29] LABS: ETHYL ALCOHOL < 3.0 mg/dl (<3)
[2017-05-24 13:00] VITALS: BP 130/64
[2017-05-24 14:00] VITALS: BP 139/73
--- NOTE | 2017-05-24 14:00 | NUR ---
A 77, admitted to [facility], under the services of JOSY Alston DO with a diagnosis of BEATRIZ. Chief complaint is NOT CARING FOR SELF AT HOME. Patient arrived via stretcher from ER. Monitor applied. Initial assessment completed. Vital signs taken and recorded. JOSY ALSTON DO notified of admission to the unit. Orders received. See assessment for past medical history, medications and allergies. Patient and/or family oriented to unit. [facility] visitation policy reviewed. Clothing/patient valuable form completed. ALL BELONGINGS SENT HOME BERNARDO NEWTON
--- NOTE | 2017-05-24 15:04 | NUR ---
RENAL SERVICE NOTIFIED OF CONSULT, AWAITING CALL BACK
--- NOTE | 2017-05-24 15:32 | NUR ---
STRAIGHT CATHED FOR 30 CC OF CLEAR YELLOW URINE
[2017-05-24 15:44] LABS: BILIRUBIN NEGATIVE (NEGATIVE); BLOOD 2+ (NEGATIVE); CLARITY SL CLOUDY (CLEAR); COLOR YELLOW (YELLOW); GLUCOSE NEGATIVE (NEGATIVE); KETONE NEGATIVE (NEGATIVE); LEUKO ESTERASE 1+ (NEGATIVE); NITRITE NEGATIVE (NEGATIVE); UROBILINOGEN 0.2 E.U./dl (0.2-1.0)
--- NOTE | 2017-05-24 15:47 | NUR ---
DR REYES CALLED IN AND UPDATED ON CONSULT/LABS
[2017-05-24 15:52] LABS: URINE AMPHETAMINES < 1000 (1000ng/ml); URINE BARBITURATES < 200 (200ng/ml); URINE BENZODIAZEPINES < 200 (200ng/ml); URINE CANNABINOIDS (THC) < 50 (50ng/ml); URINE COCAINE < 300 (300ng/ml); URINE METHADONE < 300 (300ng/ml); URINE OPIATES < 300 (300ng/ml)
[2017-05-24 15:54] LABS: BACTERIA 4+; EPITHELIAL CELLS 0-2; RBC 0-2 rbc/hpf (0-2)
[2017-05-24 15:55] LABS: URINE PHENCYCLIDINE < 25 (25ng/ml)
[2017-05-24 16:00] VITALS: BP 140/55
--- NOTE | 2017-05-24 18:50 | NUR ---
SON UP DATED ON POTENTIAL FOR DIALYSIS
[2017-05-24 20:00] VITALS: BP 125/53
--- NOTE | 2017-05-24 20:09 | NUR ---
Shift chart check completed.24 HR chart check completed.
--- NOTE | 2017-05-24 20:13 | NUR ---
ON ASSESSMENT PATIENT IS ABLE TO TELL ME SHE'S IN [facility], IT'S 2017, BUT EVEN IF GIVEN MULTIPLE CHOICE SHE WAS UNABLE TO CHOOSE THE CORRECT PRESIDENT. SHE DENIES PAIN OR SHORTNESS OF BREATH. BED IN LOW POSITION WITH WHEELS LOCKED, CALL LIGHT AND WATER IN REACH.
[2017-05-25] VITALS: BP 133/46
--- NOTE | 2017-05-25 01:54 | NUR ---
DOZING AT INTERVALS. WHEN AWAKE SHE'S VERY REPETITIVE. NO DYSRHYTHMIAS OR RESPIRATORY DISTRESS.
--- NOTE | 2017-05-25 03:37 | NUR ---
UP TO BSC TO VOID SMALL AMOUNT. STILL REPEATEDLY ASKS "HOW LONG HAVE YOU BEEN HERE?", "ARE YOU COLD?", "HOW MANY CHILDREN DO YOU HAVE?". "WHAT'S WRONG WITH THAT MAN?" NO DYSRHYTHMIAS, NO C/O PAIN. IV FLUIDS CONTINUE.
[2017-05-25 04:00] VITALS: BP 134/57
--- NOTE | 2017-05-25 04:48 | NUR ---
WE HAD ATTEMPTED TO PUT SCD'S ON PATIENT EARLIER AND SHE WORE THEM ABOUT ONE HOUR AND INSISTED THEY BE REMOVED.
[2017-05-25 05:59] LABS: BASO % 0.4 % (0.0-1.0); EOS # 0.2 10*3/uL (0.0-0.4); HEMATOCRIT 22.3 % (37.0-47.0); HEMOGLOBIN 7.5 g/dl (12.0-16.0); LYMPH # 0.6 10*3/uL (1.3-4.4); LYMPH % 14.2 % (27.0-41.0); MEAN CELL VOLUME 88.8 fl (81.0-99.0); MEAN CORPUSCULAR HGB 29.9 pg (27.0-31.0); MEAN CORPUSCULAR HGB CONC 33.6 g/dl (33.0-37.0); MEAN PLATELET VOLUME 11.6 fl (9.6-12.3); MONO # 0.3 10*3/uL (0.1-1.0); MONO % 5.5 % (3.0-9.0); NEUT # 3.4 10*3/uL (2.3-7.9); NEUT % 75.5 % (47.0-73.0); PLATELET COUNT AUTOMATED 56 10*3/uL (130-400); RED BLOOD COUNT 2.51 10*6/uL (4.10-5.10); RED CELL DISTRI WIDTH 13.5 % (0-14.5); WHITE BLOOD COUNT 4.5 10*3/uL (4.8-10.8)
[2017-05-25 06:21] LABS: ALBUMIN 2.7 gm/dl (3.1-4.5); CREATININE 13.4 mg/dL (0.55-1.02); MAGNESIUM 2.4 mg/dL (1.5-2.1); PHOSPHOROUS 4.9 mg/dL (2.5-4.9); POTASSIUM 5.5 mmol/L (3.5-5.1); TOTAL PROTEIN 6.6 gm/dL (6.4-8.2)
[2017-05-25 06:25] LABS: ACT PARTIAL THROMBO TIME 27.5 SECONDS (20.8-31.5)
[2017-05-25 06:26] LABS: THYROID STIM HORMONE (HS) 1.56 uIU/ml (0.358-4.75)
[2017-05-25 07:14] LABS: VITAMIN D, 25-HYDROXY 14.3 ng/mL (30-100)
[2017-05-25 08:00] VITALS: BP 142/64
--- NOTE | 2017-05-25 11:59 | NUR ---
PHYSICAL THERAPY PAtient with Doctor at this time. Thank you for this referral. Joycelyn Lewis,PT
[2017-05-25 12:00] VITALS: BP 150/60
--- NOTE | 2017-05-25 12:03 | NUR ---
DR REYES IN TO SEE PT AND SPOKE WITH PT'S SON SINDHU.
--- NOTE | 2017-05-25 12:21 | NUR ---
This health care social worker contacted son, Nader, to discuss discharge plans. He stated his mother had been living alone. She has been declining over the last few months; not eating, more confused at night. She does not have any outside help. A cousin lives nearby and was looking in on Edyta but has stopped because it was too much responsibility. Nader looks in on his mother a few times during the week. Discussed discharge plans-it appears Edyta requires 24 hr supervision. He is agreeable to snf placement. He will be in this afternoon-this health care social worker will give him a list of snf facilities-Nader resides in [place], [place] he does not have a preference of a skilled care facility. Will continue to follow.
--- NOTE | 2017-05-25 12:45 | NUR ---
PHYSICAL THERAPY PAtient evaluated in ICCU, full evaluation to follow. Comntinue with PT as per plan of care with fall, acute debility and confusion precautions. MAy require SNF to return patien to 100% (I) PLOF. PAtient is moderate compleity via chart review, tests and evaluation: 90503. Thank you for this referral. Joycelyn Engle,PT
--- NOTE | 2017-05-25 13:59 | NUR ---
DR HERNANDEZ MADE AWARE OF NEW CONSULT ORDER.
--- NOTE | 2017-05-25 14:29 | NUR ---
PT TRANSFERED TO ROOM 410 VIA WHEELCHAIR AT THIS TIME. REPORT GIVEN TO FITO PHILLIPS.
--- NOTE | 2017-05-25 14:30 | NUR ---
PT ARRIVED TO 4TH ASSUMED CARE OF PT AT THIS TIME, PT HAS INCREASED CONFUSION, FAMILY ARRIVED AND VISITING WITH PT.
--- NOTE | 2017-05-25 15:20 | NUR ---
Met with patient's two sons, Reviewed list of snf facilities. They are interested in [facility]. Patient has Advantra and may require dialysis. Will have to investigate snf facilties that are providers for Advantra. Patient does not have a MPOA or POA. Has a history of scizophrenia and behavior problems-mainly medical noncompliance. Waiting to hear back from [facility].
[2017-05-25 16:00] VITALS: BP 177/60
--- NOTE | 2017-05-25 19:15 | NUR ---
PT GETTING OUT OF BED AT THIS TIME AND PULLING AT IV, REINFORCED TO PT IMPORTANCE OF STAYING IN AND LEAVING IV IN PLACE, PT IS A FALL RISK. ASSISTED PT BACK TO BED, PLACED SIDE RAILS UP X3 AND BED ALARM ON.
[2017-05-25 20:00] VITALS: BP 179/56
--- NOTE | 2017-05-25 20:00 | NUR ---
PT ATTEMPTING TO CLIMB OVER SIDE RAILS AT THIS TIME, ASSISTED PT BACK TO BED. PT STATING SHE NEEDS TO USE BATHROOM, ASSISTED PT TO BATHROOM, THEN BACK TO BED AND REPOSITIONED FOR COMFORT. CALL LIGHT WITHIN USE, REINFORCED USE OF CALL LIGHT.
--- NOTE | 2017-05-25 21:06 | NUR ---
PT VERY RESTLESS AT THIS TIME. MEDICATED WITH RESTORIL. WILL MONITOR FOR EFFECTIVENESS.
--- NOTE | 2017-05-25 22:30 | NUR ---
PT RESTING IN BED, NO DISTRESS NOTED. RESTORIL EFFECTIVE.
[2017-05-26] VITALS: BP 133/42
--- NOTE | 2017-05-26 06:27 | NUR ---
DR CRAWFORD NOTIFIED OF PT'S REFUSAL FOR LAB DRAWS. ALSO NOTIFIED OF PT'S INCREASED AGITATION AND COMBATIVENESS THROUGH THE NIGHT.
[2017-05-26 06:56] LABS: BASO % 0.4 % (0.0-1.0); EOS # 0.2 10*3/uL (0.0-0.4); EOS % 4.5 % (1.0-4.0); HEMATOCRIT 22.6 % (37.0-47.0); HEMOGLOBIN 7.7 g/dl (12.0-16.0); LYMPH # 0.6 10*3/uL (1.3-4.4); LYMPH % 13.4 % (27.0-41.0); MEAN CELL VOLUME 87.6 fl (81.0-99.0); MEAN CORPUSCULAR HGB 29.8 pg (27.0-31.0); MEAN CORPUSCULAR HGB CONC 34.1 g/dl (33.0-37.0); MEAN PLATELET VOLUME 10.1 fl (9.6-12.3); MONO # 0.2 10*3/uL (0.1-1.0); MONO % 4.5 % (3.0-9.0); NEUT # 3.6 10*3/uL (2.3-7.9); PLATELET COUNT AUTOMATED 59 10*3/uL (130-400); RED BLOOD COUNT 2.58 10*6/uL (4.10-5.10); RED CELL DISTRI WIDTH 13.7 % (0-14.5); WHITE BLOOD COUNT 4.6 10*3/uL (4.8-10.8)
[2017-05-26 07:31] LABS: ALBUMIN 2.6 gm/dl (3.1-4.5); ALKALINE PHOSPHATASE 36 U/L (45-117); CHLORIDE 102 mmol/L (98-107); IRON 92 ug/dL (50-170); POTASSIUM 5.2 mmol/L (3.5-5.1); SGOT/AST 11 IU/L (3-35); SODIUM 137 mmol/L (136-145); TOTAL IRON BINDING CAPACITY 193 ug/dl (250-450); TOTAL PROTEIN 6.6 gm/dL (6.4-8.2)
[2017-05-26 07:38] LABS: BUN 126 mg/dl (7-24); SGPT/ALT < 6 U/L (12-78)
[2017-05-26 08:00] VITALS: BP 169/56
[2017-05-26 08:41] LABS: FERRITIN 333.5 ng/mL (10.0-291.0)
--- NOTE | 2017-05-26 09:33 | NUR ---
social worker clinical working with patient and family on chcf placement
--- NOTE | 2017-05-26 10:19 | NUR ---
PHYSICAL THERAPY Pt seen this AM 1:1 for her therapy and moved into [facility] now from [facility]. Pt with acute debility confusion precautions. With verbal cueing for everything. Transfer supine/sit, MIN A X 1, sitting balance CG X 1, X 4 min. Sit/stand and standing balance MOD A X 1. Followed by gait 20' X 3, with MOD RIVET FLUNKY X 1, sitting rest after each gait and needing cueing for gait safety and her turns. Pt up in her justice chair, tray up and body alarm on. Very sweet but confused and likes to talk treatment time 25 min. MADELIN WOODWARD BARNWORKER GROOM.
--- NOTE | 2017-05-26 10:51 | NUR ---
Referral made to [facility]'s snf-they do accept Advantra. Awaiting response.
[2017-05-26 12:00] VITALS: BP 144/55
[2017-05-26 16:00] VITALS: BP 171/58
[2017-05-26 16:30] VITALS: BP 154/72
--- NOTE | 2017-05-26 19:30 | NUR ---
PATIENT ASLEEP IN BED AT THIS TIME. RESPIRATIONS EASY, NO S/S OF DISTRESS NOTED. BED LOCKED IN LOW POSITION, BED ALARM INTACT, CALL LIGHT IN REACH.
[2017-05-26 20:00] VITALS: BP 138/49
[2017-05-27] VITALS: BP 139/61
--- NOTE | 2017-05-27 02:17 | NUR ---
PATIENT GETTING OUT OF BED, SETTING OFF BED ALARMS MULTIPLE TIMES. PATIENT ASSISTED UP AND DOWN TO BATHROOM 5+ TIMES, FORGETFUL THAT SHE HAD JUST GONE. VERY LITTLE OUTPUT NOTED. PATIENT CONTINUES TO MISS HAT PROVIDED IN BATHROOM. PATIENT EDUCATED TO WIPE FRONT TO BACK, WELL. PATIENT ASSISTED BACK INTO BED. REQUESTING THAT NAKUL HOSE BE REMOVED. LOTION APPLIED TO BLE AND TO BACK. OFFERED PATIENT SOMETHING TO HELP HER GET TO SLEEP, PATIENT SAYS "OKAY, THAT MIGHT HELP." PO RESTORIL ADMINISTERED PER ORDER. WILL MONITOR EFFECTIVENESS. CALL LIGHT LEFT IN REACH, BED LOCKED IN LOW POSITION, BED ALARM INTACT.
--- NOTE | 2017-05-27 04:00 | NUR ---
PATIENT ASLEEP IN BED AT THIS TIME. HAS NOT TRIED TO GET OUT OF BED AGAIN. EARLIER MEDICATION APPEARS EFFECTIVE. WILL CONTINUE TO MONITOR. BED ALARM INTACT, CALL LIGHT IN REACH.
[2017-05-27 04:09] LABS: RBC, FOLATE HEMATOCRIT 22.7 % (34.0-46.6)
[2017-05-27 06:21] LABS: BASO % 0.5 % (0.0-1.0); EOS # 0.2 10*3/uL (0.0-0.4); HEMATOCRIT 19.7 % (37.0-47.0); HEMOGLOBIN 6.7 g/dl (12.0-16.0); LYMPH # 0.6 10*3/uL (1.3-4.4); LYMPH % 14.2 % (27.0-41.0); MEAN CELL VOLUME 87.6 fl (81.0-99.0); MEAN CORPUSCULAR HGB 29.8 pg (27.0-31.0); MONO # 0.2 10*3/uL (0.1-1.0); MONO % 4.7 % (3.0-9.0); NEUT # 3.2 10*3/uL (2.3-7.9); NEUT % 76.1 % (47.0-73.0); PLATELET COUNT AUTOMATED 52 10*3/uL (130-400); RED BLOOD COUNT 2.25 10*6/uL (4.10-5.10); RED CELL DISTRI WIDTH 13.7 % (0-14.5); WHITE BLOOD COUNT 4.2 10*3/uL (4.8-10.8)
[2017-05-27 06:40] LABS: ALBUMIN 2.2 gm/dl (3.1-4.5); BUN 126 mg/dl (7-24); CHLORIDE 100 mmol/L (98-107); PHOSPHOROUS 5.7 mg/dL (2.5-4.9); POTASSIUM 5.1 mmol/L (3.5-5.1); SGOT/AST 10 IU/L (3-35); SODIUM 135 mmol/L (136-145); TOTAL PROTEIN 5.8 gm/dL (6.4-8.2)
[2017-05-27 06:41] LABS: ALKALINE PHOSPHATASE 31 U/L (45-117)
[2017-05-27 06:57] LABS: SGPT/ALT < 6 U/L (12-78)
--- NOTE | 2017-05-27 07:44 | NUR ---
NOTIFIED OF HEMOGLOBIN
[2017-05-27 08:00] VITALS: BP 153/53
--- NOTE | 2017-05-27 09:15 | NUR ---
PHYSICAL THERAPY Edyta seen this AM 1:1 for her therapy gait. Pt getting her shower at this time, stopped back and eating breskfast. MADELIN WOODWARD PRINT PRODUCER.
--- NOTE | 2017-05-27 09:17 | NUR ---
PHYSICAL THERAPY Back this AM to gait Pt and she was up in her gerichair, tray up and Pt has IV pole. With verbal cueing for everything. Transfer sit/stand and standing balance with Pt pushing her IV Pole, 30' X 2, with MIN/MOD MARINATOR X 1, and verbal cueing for gait, balance and turn safety. Today was Pt best day ambulating, one sitting rest with this and went over Pt gait balance safety. Tray up on her chair, body alarm on and no complaints. MADELIN WOODWARD UNDERWRITING SUPPORT SPECIALIST.
[2017-05-27 09:36] LABS: RETICULOCYTE % 0.55 % (0.50-2.50)
--- NOTE | 2017-05-27 11:28 | NUR ---
[facility] requested more information on this patient prior to accepting. May be medically complicated. Provided additional clincals, waiting on acceptance.
[2017-05-27 13:38] LABS: HEMATOCRIT 27.4 % (37.0-47.0); HEMOGLOBIN 9.4 g/dl (12.0-16.0)
[2017-05-27 16:00] VITALS: BP 160/57
[2017-05-27 16:10] LABS: FREE KAPPA LIGHT CHAINS 25.5 mg/L (3.3-19.4); FREE LAMBDA LIGHT CHAINS 1943.1 mg/L (5.7-26.3); KAPPA/LAMBDA RATIO 0.01 (0.26-1.65)
[2017-05-27 20:00] VITALS: BP 159/58; BP 165/58
--- NOTE | 2017-05-27 23:07 | NUR ---
URINE OBTAINED AND SENT TO LAB.
[2017-05-28] VITALS (11 sets, daily range): BP systolic 95–178; BP diastolic 42–73
[2017-05-28 06:10] LABS: BASO % 0.4 % (0.0-1.0); EOS # 0.2 10*3/uL (0.0-0.4); EOS % 4.6 % (1.0-4.0); HEMATOCRIT 26.5 % (37.0-47.0); LYMPH % 19.8 % (27.0-41.0); MEAN CELL VOLUME 87.2 fl (81.0-99.0); MEAN CORPUSCULAR HGB 29.6 pg (27.0-31.0); MEAN PLATELET VOLUME 10.9 fl (9.6-12.3); MONO # 0.2 10*3/uL (0.1-1.0); MONO % 4.6 % (3.0-9.0); NEUT # 3.5 10*3/uL (2.3-7.9); NEUT % 70.2 % (47.0-73.0); PLATELET COUNT AUTOMATED 56 10*3/uL (130-400); RED BLOOD COUNT 3.04 10*6/uL (4.10-5.10); RED CELL DISTRI WIDTH 13.9 % (0-14.5)
[2017-05-28 06:15] LABS: ALBUMIN 2.6 gm/dl (3.1-4.5); CREATININE 12.8 mg/dL (0.55-1.02); POTASSIUM 4.6 mmol/L (3.5-5.1); TOTAL PROTEIN 6.7 gm/dL (6.4-8.2)
--- NOTE | 2017-05-28 07:43 | NUR ---
Rested quietly most of night with frequent trips to BR. Ambulates with slow, steady gait and assist of 1. Denies pain. Resp easy and regular. Will continue to monitor.
--- NOTE | 2017-05-28 08:01 | NUR ---
Shift chart check completed.
--- NOTE | 2017-05-28 09:58 | NUR ---
PHYSICAL THERAPY Pt seen this AM 1:1 and is improving with her standing, gait balance. Transfer supine/sit CGA X 1, sitting balance supervision x 1, X 5 min, no LOB. Sit/stand and standing balance MIN A X 1. Followed by working on gait balance with MIN A X 1, and much verbal cueing for gait backwards, right and left side stepping, stop/start X 3, with two sitting rest with this. Pt confuesed, up in her justice chair, body alarm on, tray up, treatment time 25 min. MADELIN WOODWARD PARTY PLAN SALES CONSULTANT.
--- NOTE | 2017-05-28 13:10 | NUR ---
PLATELETS ARE FINISHED
--- NOTE | 2017-05-28 14:03 | NUR ---
PHYSICAL THERAPY CO-SIGN I approve of the Phyical Therapy notes written above. KEANU DE LA GARZA PT
--- NOTE | 2017-05-28 20:02 | NUR ---
MOTFIED OF CONCERN REGARDING PT'S ECHO. INFORMED THAT PER PTS HAS SEVERE AORTIC VALVE STENOSIS
[2017-05-29] VITALS: BP 174/60
--- NOTE | 2017-05-29 05:03 | NUR ---
24 HR chart check completed.
[2017-05-29 06:44] LABS: BASO % 0.6 % (0.0-1.0); EOS # 0.2 10*3/uL (0.0-0.4); HEMOGLOBIN 8.5 g/dl (12.0-16.0); LYMPH # 0.6 10*3/uL (1.3-4.4); MEAN CELL VOLUME 86.5 fl (81.0-99.0); MEAN CORPUSCULAR HGB 29.4 pg (27.0-31.0); MEAN PLATELET VOLUME 9.9 fl (9.6-12.3); MONO # 0.2 10*3/uL (0.1-1.0); MONO % 5.4 % (3.0-9.0); NEUT # 2.5 10*3/uL (2.3-7.9); NEUT % 71.7 % (47.0-73.0); PLATELET COUNT AUTOMATED 64 10*3/uL (130-400); RED BLOOD COUNT 2.89 10*6/uL (4.10-5.10); WHITE BLOOD COUNT 3.5 10*3/uL (4.8-10.8)
[2017-05-29 07:08] LABS: CREATININE 12.7 mg/dL (0.55-1.02); MAGNESIUM 2.1 mg/dL (1.5-2.1); PHOSPHOROUS 7.1 mg/dL (2.5-4.9); POTASSIUM 4.3 mmol/L (3.5-5.1)
[2017-05-29 08:00] VITALS: BP 158/54
--- NOTE | 2017-05-29 09:58 | NUR ---
CONSULT CARDIOLOGY ANSWERING SERVICE CALLED. THE SERVICE STATED THAT THE MESSAGE WOULD BE GIVEN TO THE DRSamuel OF THE CONSULT. NO CONCERNS AT THIS TIME.
--- NOTE | 2017-05-29 10:08 | NUR ---
DR. NAVA CALLED AND WAS TOLD ABOUT CONSULT FOR THE PATIENT. THE DR WAS TOLD ABOUT THE REASON FOR CONSULT AND HE STATED HE WOULD BE IN SOON TO SEE THE PATIENT.
[2017-05-29 12:00] VITALS: BP 148/56
[2017-05-29 16:00] VITALS: BP 173/64
--- NOTE | 2017-05-29 17:22 | NUR ---
Discharge instructions reviewed with patient/family. Patient receptive and verbalizes understanding. Follow-up care arranged. Written instructions given to patient/family. MICH HUERTA
[2017-05-29 20:00] VITALS: BP 165/82
[2017-05-30] VITALS (10 sets, daily range): BP systolic 154–185; BP diastolic 49–94
--- NOTE | 2017-05-30 03:23 | NUR ---
PATIENT RESTING WELL THROUGHOUT SHIFT. SET BED ALARM OFF ONCE GETTING UP TO GO TO BATHROOM. NO SIGNS OR SYMPTOMS OF DISTRESS NOTED. WILL CONTINUE TO MONITOR. CALL LIGHT IN REACH.
--- NOTE | 2017-05-30 03:29 | NUR ---
24 HOUR CHART CHECK DONE.
[2017-05-30 05:55] LABS: BASO % 0.5 % (0.0-1.0); EOS # 0.3 10*3/uL (0.0-0.4); EOS % 6.5 % (1.0-4.0); HEMATOCRIT 22.3 % (37.0-47.0); HEMOGLOBIN 7.6 g/dl (12.0-16.0); LYMPH # 0.7 10*3/uL (1.3-4.4); LYMPH % 16.1 % (27.0-41.0); MEAN CELL VOLUME 87.5 fl (81.0-99.0); MEAN CORPUSCULAR HGB 29.8 pg (27.0-31.0); MEAN CORPUSCULAR HGB CONC 34.1 g/dl (33.0-37.0); MEAN PLATELET VOLUME 11.1 fl (9.6-12.3); MONO # 0.2 10*3/uL (0.1-1.0); MONO % 5.2 % (3.0-9.0); NEUT # 2.9 10*3/uL (2.3-7.9); NEUT % 71.2 % (47.0-73.0); PLATELET COUNT AUTOMATED 56 10*3/uL (130-400); RED BLOOD COUNT 2.55 10*6/uL (4.10-5.10)
[2017-05-30 06:24] LABS: CREATININE 13.3 mg/dL (0.55-1.02); POTASSIUM 4.5 mmol/L (3.5-5.1)
--- NOTE | 2017-05-30 11:20 | NUR ---
[facility]
--- NOTE | 2017-05-30 12:44 | NUR ---
VERY FORGETFULL. ASKING THE SAME QUESTIONS EVERY FEW MINUTES. ALERT TO PERSON AND PLACE, NOT TIME. LUNGS CLEAR BILATERALLY. PULSE OX 97% ON ROOM AIR. AFEBRILE.
[2017-05-30 14:52] LABS: HEMATOCRIT 30.1 % (37.0-47.0); HEMOGLOBIN 10.1 g/dl (12.0-16.0)
[2017-05-30 16:05] LABS: HLA CLASS 1 ANTIBODY Negative (Negative); IIb/IIIa ANTIBODY Negative (Negative); Ib/IX ANTIBODY Negative (Negative)
[2017-05-30 17:08] LABS: PLT ASSOCIATED ANTI-la/lla Positive (Negative); PLT ASSOCIATED ANTI-llb/llla Negative (Negative)
--- NOTE | 2017-05-30 20:25 | NUR ---
PT. CONFUSED. ASKING WHAT NURSE IS DOING IN HER KITCHEN. LOOKING FOR PURSE WHICH WAS EXPLAINED BY FAMILY MULTIPLE TIMES WAS NOT IN ROOM. PT. REPEATING SAME QUESTIONS. ASK NURSE IF SHE WAS AT LEAST 4 TIMES ON SEPARATE OCCASSIONS. DOES NOT KNOW WHAT DAY IT IS. EDUARDO LUGO RN
[2017-05-31] VITALS: BP 168/80
[2017-05-31 06:28] LABS: BASO % 0.4 % (0.0-1.0); EOS # 0.2 10*3/uL (0.0-0.4); EOS % 3.8 % (1.0-4.0); HEMATOCRIT 32.2 % (37.0-47.0); LYMPH # 0.5 10*3/uL (1.3-4.4); MEAN CELL VOLUME 88.5 fl (81.0-99.0); MEAN CORPUSCULAR HGB 30.2 pg (27.0-31.0); MEAN CORPUSCULAR HGB CONC 34.2 g/dl (33.0-37.0); MEAN PLATELET VOLUME 10.5 fl (9.6-12.3); MONO # 0.3 10*3/uL (0.1-1.0); MONO % 5.6 % (3.0-9.0); PLATELET COUNT AUTOMATED 58 10*3/uL (130-400); RED BLOOD COUNT 3.64 10*6/uL (4.10-5.10); RED CELL DISTRI WIDTH 13.8 % (0-14.5)
--- NOTE | 2017-05-31 06:33 | NUR ---
PT UP IN CHAIR AT THIS TIME. PT HASN'T SLEPT ALL NIGHT. PT HAS WASHED HANDS AND MADE BED MULTIPLE MULTIPLE TIMES THIS SHIFT. PT ENCOURAGED TO GET IN BED AND SLEEP. PT HAS BEEN IN AND OUT OF BED MULTIPLE TIMES. PT UNABLE TO REORIENT. PT THINKS SOMEONE HAS URINATED IN HER BED. PT HAS A BAG OF SNACKS THAT SHE HAS TRANSFERRED FROM BAG TO BAG. PT IN VIEW FROM NURSES STATION. WILL MONITOR.
[2017-05-31 06:39] LABS: CREATININE 13.6 mg/dL (0.55-1.02); MAGNESIUM 2.1 mg/dL (1.5-2.1); PHOSPHOROUS 7.1 mg/dL (2.5-4.9); POTASSIUM 4.2 mmol/L (3.5-5.1)
--- NOTE | 2017-05-31 07:15 | NUR ---
DR JASON NOTIFIED OF PT HR 140'S-150'S. HE STATES HE WILL BE UP TO SEE HER.
--- NOTE | 2017-05-31 07:25 | NUR ---
DR JASON COMES TO FLOOR TO SEE PT. ORDERS TO FOLLOW FOR SOMETHING FOR ANXIETY.
--- NOTE | 2017-05-31 07:35 | NUR ---
DR MEDEROS CALLED VIA ANSWERING SERVICE. SERVICE STATES TO CALL OFFICE SINCE SHE HAS NO CALL SCHEDULE. OFFICE CALLED AND SENT BACK TO ANSWERING SERVICE. SHE STATES TO CALL BACK IN A FEW MINUTES. ONCOMING NURSE WILL FOLLOW UP.
--- NOTE | 2017-05-31 07:53 | NUR ---
24 HR chart check completed.
[2017-05-31 08:00] VITALS: BP 103/77
[2017-05-31 08:41] LABS: Ia/IIa ANTIBODY Negative (Negative)
--- NOTE | 2017-05-31 10:43 | NUR ---
Per Sara from [facility]-unsure if admminstration will accept patient due to her psych history and behavioral issues especially at night. Also since patient will be starting dialysis that may also be in issue. Sara did request updated information to be sent and she will present again to administration. .
--- NOTE | 2017-05-31 11:45 | NUR ---
PHYSICAL THERAPY Pt seen this AM for her therapy session. All transfers were CGA X 1, with verbal cueing for safety. Followed by gait total 90' X 1, and she said thats all. Pt is improving with her gait but still very confused,. MADELIN WOODWARD BUCKLE ATTACHER.
[2017-05-31 12:00] VITALS: BP 148/90
--- NOTE | 2017-05-31 12:00 | NUR ---
DR PEREYRA IN AND WANTS DIALYSIS CATH PLACED IN IR TOMORROW. ALSO STATED PLATELET COUNT SHOULD BE CORRECTED BEFORE THIS. RELAYED THIS MESSAGE TO DR JASON.
[2017-05-31 16:00] VITALS: BP 159/65
--- NOTE | 2017-05-31 16:00 | NUR ---
DR POTTS IN FOR CONSULT AND STATED PT IS NOT COMPETENT.
[2017-05-31 17:06] LABS: ALBUMIN, URINE RANDOM 18.7 % (.); ALPHA-1-GLOBULIN, URINE 3.7 % (.); GAMMA GLOBULIN, URINE 59.1 % (.); M-SPIKE % Comment: % (Not Observed); PROTEIN,TOTAL - URINE RANDOM 44.5 mg/dL (Not Estab.)
--- NOTE | 2017-05-31 19:31 | NUR ---
PT. SLEEPING, AROUSES WITH ASSESSMENT. REMAINS CONFUSED AND DISORIENTED. HEP LOCK IN RAN ASYMPT. LUNGS DIMINISHED BUT CLEAR BILAT. ABDOMEN SOFT, NONDISTENDED AND NORMO. NO PERIPHERAL EDEMA NOTED. RESP. EASY AND REG, NO DISTRESS. EDUARDO LUGO RN
[2017-05-31 20:00] VITALS: BP 167/72
--- NOTE | 2017-05-31 23:17 | NUR ---
PT. GIVEN REMERON AT 2039 ORDERED AND IS CURRENTLY SLEEPING, EFFECTIVE.
[2017-06-01] VITALS (9 sets, daily range): BP systolic 95–174; BP diastolic 48–87
[2017-06-01 06:37] LABS: BASO % 0.5 % (0.0-1.0); EOS # 0.3 10*3/uL (0.0-0.4); EOS % 7.3 % (1.0-4.0); LYMPH # 0.5 10*3/uL (1.3-4.4); LYMPH % 12.4 % (27.0-41.0); MEAN CELL VOLUME 89.3 fl (81.0-99.0); MEAN CORPUSCULAR HGB 30.9 pg (27.0-31.0); MEAN CORPUSCULAR HGB CONC 34.6 g/dl (33.0-37.0); MEAN PLATELET VOLUME 10.4 fl (9.6-12.3); MONO # 0.2 10*3/uL (0.1-1.0); MONO % 5.8 % (3.0-9.0); NEUT # 2.9 10*3/uL (2.3-7.9); NEUT % 73.7 % (47.0-73.0); PLATELET COUNT AUTOMATED 59 10*3/uL (130-400); RED BLOOD COUNT 2.91 10*6/uL (4.10-5.10)
[2017-06-01 07:02] LABS: CREATININE 14.3 mg/dL (0.55-1.02); POTASSIUM 4.7 mmol/L (3.5-5.1)
--- NOTE | 2017-06-01 08:24 | NUR ---
PLATELETS TRANSFUSED PER ORDER WITHOUT DIFFICULTY
--- NOTE | 2017-06-01 09:02 | NUR ---
PER RADIOLOGY KEEP PT NPO
--- NOTE | 2017-06-01 09:32 | NUR ---
PHYSICAL THERAPY Edyta seen this AM for her therapy gait, Pt still very confuswed. All transfers were CGA X 1. Gait 45' X 2, MIN OFFICE MACHINES WIRER X 1, with cueing for gait safety and her turns. In to use her bathroom, wash her hands and back supine in bed with call light and bed alarm on. MADELIN WOODWARD REDRAWER.
--- NOTE | 2017-06-01 14:00 | NUR ---
PT TRANSFERRED TO DIALYSIS VIA OR NURSE
[2017-06-01 15:37] LABS: IRON 96 ug/dL (50-170); TOTAL IRON BINDING CAPACITY 209 ug/dl (250-450)
--- NOTE | 2017-06-01 15:45 | NUR ---
PT RETURN FROM DIALYSIS, AWAKE ALERT PLEASANTLY CONFUSED.
[2017-06-01 17:11] LABS: ALPHA-1-GLOBULIN 0.2 g/dL (0.0-0.4); ALPHA-2-GLOBULIN 0.5 g/dL (0.4-1.0); BETA GLOBULIN 0.5 g/dL (0.7-1.3); GAMMA GLOBULIN 1.8 g/dL (0.4-1.8); GLOBULIN, TOTAL 3.1 g/dL (2.2-3.9); M-SPIKE Comment: g/dL (Not Observed); TOTAL PROTEIN, SERUM 6.1 g/dL (6.0-8.5)
--- NOTE | 2017-06-01 19:40 | NUR ---
PT NOT ON MONITOR...FOUND IT SHOVED UNDER HER MATTRESS. NEW BATTERIES INSTALLED AND PLACED BACK ON PT. SHE IS IN BED, PLEASANT. BED EXIT ALARM ON FOR SAFETY. CALL LIGHT IN REACH.
--- NOTE | 2017-06-01 22:24 | NUR ---
PT RESTING IN BED.
--- NOTE | 2017-06-01 22:24 | NUR ---
PT REMAINS CALM AND RELAXED.
[2017-06-02] VITALS: BP 111/69
--- NOTE | 2017-06-02 | NUR ---
AMBULATING ABOUT IN ROOM. PLEASANTLY CONFUSED. NO DISTRESS NOTED. NO VOICED COMPLAINTS
--- NOTE | 2017-06-02 01:10 | NUR ---
C/O PAIN TO RIGHT CHEST TESIO INSERTION SITE. MEDICATED WTIH TYLENOL PER PRN ORDER. CALL LIGHT WITHIN REACH. WILL MONITOR FOR EFFECTIVENESS
--- NOTE | 2017-06-02 03:00 | NUR ---
EARLIER TYLENOL APPEARS EFFECTIVE. SLEEPING. CALL LIGHT WITHIN REACH.
--- NOTE | 2017-06-02 06:09 | NUR ---
SLEPT SINCE RECEIVING TYLENOL. AWAKE THIS AM, C/O PAIN TO RIGHT CHEST TESIO INSERTION SITE. MEDICATED WITH TYLENOL PER PRN ORDER. CALL LIGHT WITHIN REACH. WILL MONITOR
[2017-06-02 06:10] LABS: HEP B CORE AB TOTAL 006718 Negative (Negative); HEPATITIS B SURFACE AB 006395 Non Reactive (.); HEPATITIS B SURFACE AG Negative (Negative); HEPATITIS C AB <0.1 (0.0-0.9)
[2017-06-02 06:10] LABS: HEPATITIS B SURFACE AG Negative (Negative); HEPATITIS C VIRUS ANTIBODY <0.1 s/co (0.0-0.9)
[2017-06-02 07:00] LABS: BASO % 0.6 % (0.0-1.0); EOS # 0.2 10*3/uL (0.0-0.4); EOS % 7.2 % (1.0-4.0); HEMATOCRIT 26.3 % (37.0-47.0); HEMOGLOBIN 8.9 g/dl (12.0-16.0); LYMPH # 0.6 10*3/uL (1.3-4.4); MEAN CELL VOLUME 90.4 fl (81.0-99.0); MEAN CORPUSCULAR HGB 30.6 pg (27.0-31.0); MEAN CORPUSCULAR HGB CONC 33.8 g/dl (33.0-37.0); MEAN PLATELET VOLUME 10.5 fl (9.6-12.3); MONO # 0.2 10*3/uL (0.1-1.0); MONO % 7.2 % (3.0-9.0); NEUT # 2.1 10*3/uL (2.3-7.9); NEUT % 64.7 % (47.0-73.0); RED BLOOD COUNT 2.91 10*6/uL (4.10-5.10); RED CELL DISTRI WIDTH 13.9 % (0-14.5); WHITE BLOOD COUNT 3.2 10*3/uL (4.8-10.8)
[2017-06-02 07:02] LABS: PLATELET COUNT AUTOMATED 84 10*3/uL (130-400)
[2017-06-02 07:24] LABS: ALBUMIN 2.5 gm/dl (3.1-4.5); CREATININE 9.06 mg/dL (0.55-1.02); POTASSIUM 3.9 mmol/L (3.5-5.1); TOTAL PROTEIN 6.3 gm/dL (6.4-8.2)
[2017-06-02 08:00] VITALS: BP 152/56
--- NOTE | 2017-06-02 09:39 | NUR ---
PHYSICAL THERAPY Pt was seen this AM 1:1 for her therapy gait. All transfers were CGA X 1. Gait into pt's bathroom 14' X, MIN A X 1, followed by Pt washing her hands. Then gait total 220' X 1, MIN LIFT MECHANIC X 1, with cueing for gait safety, and turns. one stop/stand and one standing balance MIN A X 1. Pt is still very confused, back supine in bed call light treatment time 25 min. MADELIN WOODWARD CIVIL LABORATORY TECHNICIAN.
--- NOTE | 2017-06-02 10:15 | NUR ---
Patient not available for Occupational Therapy evaluation as she is in dialysis. OTR will recheck at a later time. Glenny Gregory OTR/coco
--- NOTE | 2017-06-02 11:35 | NUR ---
Contacted Sara from [facility]-she requested updated information on patient be faxed. Dialysis has been started-she may require two additional treatments inpatient. Sara also requested update telephone mumbers of patient's sons-she stated the ones she has are nonworking numbers. Correct numbers will be faxed.
--- NOTE | 2017-06-02 14:16 | NUR ---
Patient approached for Occupational Therapy evaluation on 4th floor.Patient was up in her room walking to and from bed verbalizing that she was going home today. Patient was unaware that she had dialysis this morning. Patient also reported that she did not need any occupational therapy and was irritated and wanted to go home. Nursing staff was notified of above. OTR will attempt at a later date. Glenny Gregory OTR/Kimberly
[2017-06-02 16:00] VITALS: BP 160/80
--- NOTE | 2017-06-02 20:00 | NUR ---
TESSIO CATH TO RIGHT CHEST INTACT, DRESSING COMING LOOSE, REINFORCED WITH HYPAFIX TAPE.
[2017-06-02 20:04] VITALS: BP 155/77
[2017-06-03] VITALS: BP 151/60
[2017-06-03 05:45] LABS: BASO % 0.6 % (0.0-1.0); EOS # 0.1 10*3/uL (0.0-0.4); HEMATOCRIT 27.5 % (37.0-47.0); HEMOGLOBIN 9.1 g/dl (12.0-16.0); LYMPH # 0.5 10*3/uL (1.3-4.4); LYMPH % 14.8 % (27.0-41.0); MEAN CELL VOLUME 91.1 fl (81.0-99.0); MEAN CORPUSCULAR HGB 30.1 pg (27.0-31.0); MEAN CORPUSCULAR HGB CONC 33.1 g/dl (33.0-37.0); MEAN PLATELET VOLUME 10.7 fl (9.6-12.3); MONO # 0.3 10*3/uL (0.1-1.0); NEUT # 2.4 10*3/uL (2.3-7.9); NEUT % 72.3 % (47.0-73.0); PLATELET COUNT AUTOMATED 72 10*3/uL (130-400); RED BLOOD COUNT 3.02 10*6/uL (4.10-5.10); WHITE BLOOD COUNT 3.3 10*3/uL (4.8-10.8)
[2017-06-03 05:55] LABS: ALBUMIN 2.8 gm/dl (3.1-4.5); CREATININE 5.38 mg/dL (0.55-1.02); POTASSIUM 4.1 mmol/L (3.5-5.1); TOTAL PROTEIN 6.8 gm/dL (6.4-8.2)
[2017-06-03 08:00] VITALS: BP 170/86
--- NOTE | 2017-06-03 08:10 | NUR ---
PHYSICAL THERAPY Edyta seen this AM 1:1 for her therapy gait. Pt is very confused today and having one on one with her at all times. All transfers were independent. Gait total 400', with supervision X 1, Pt did not want touched when she was up ambulating. Pt needing much verbal cueing for turns and just overall gait safety but had no LOB with this gait. Stop/start gait, standing balance with no LOB.Pt back in her room with one on one care. MADELIN WOODWARD MALTED MILK SUPERVISOR.
--- NOTE | 2017-06-03 08:11 | NUR ---
CALLED AT THIS TIME REGARDING PATIENT'S AGITATION. AWAITING RETURN PHONE CALL. DR. Paulo PATHAK CALLED REGARDING PATIENT'S AGITATION. NO NEW ORDERS AT THIS TIME AND WILL BE UP TO SEE THE PATIENT.
--- NOTE | 2017-06-03 08:20 | NUR ---
PATIENT REMAINS AGITATED, STATES SHE IS GOING HOME AND WALKING THE HALLWAY. DR.A PATHAK UP ON FLOOR AND ESCORTED PATIENT BACK TO THE ROOM.
--- NOTE | 2017-06-03 08:50 | NUR ---
Referral made to [facility]'s snf-facility has inhouse dialysis. Spoke with Waleska, admission coordinator. [facility] does accept [employer].
--- NOTE | 2017-06-03 09:32 | NUR ---
IM ATIVAN GIVEN PER ORDER FOR AGITATION. WILL MONITOR.
--- NOTE | 2017-06-03 10:15 | NUR ---
Referral made to [facility]'s snf-patient denied-they do not accept patient's insurance, [employer].
--- NOTE | 2017-06-03 10:27 | NUR ---
ATIVAN EFFECTIVE. PT RESTING IN CHAIR WITH EYES CLOSED. RESP EASY AND REGULAR. NO ACUTE DISTRESS NOTED. SITTER AT BEDSIDE. WILL CONTINUE TO MONITOR.
--- NOTE | 2017-06-03 11:03 | NUR ---
PT REMAINS ASLEEP. RESP EASY AND REGULAR ON ROOM AIR. 1:1 SITTER REMIANS. WILL MONITOR.
--- NOTE | 2017-06-03 13:30 | NUR ---
OCCUPATIONAL THERAPY Patient was given ativan at approx 9 am this morning d/t agitation and unsafe behaviors.She has not been alert since then. There is a 1:1 aide with her at all times. OTR will attempt Occupational Therapy evaluation later this afternoon. Glenny Gregory OTR/coco
--- NOTE | 2017-06-03 13:55 | NUR ---
[facility] stated their sister facility [facility] is more appropriate for this patient due to the inhouse HD. Spoke with Waleska from [facility] who stated at this time with the patient's insurance ([employer]), and with the current physical therapy notes plus patients behaviors, they would not be able to accommodate her needs.
--- NOTE | 2017-06-03 14:12 | NUR ---
Called patients son, Nader and explained to him that we have been unsuccessful in finding a skilled facility that would accept his mother due to patient being physically independent. Provided him with a list of Assisted living facilities, will follow
--- NOTE | 2017-06-03 15:25 | NUR ---
Patient not available for Occupational Therapy evaluation as she is soundly sleeping for ativan this am. OTR will attempt at a later date. Glenny Gregory OTR/Kimberly
[2017-06-03 16:00] VITALS: BP 148/74
[2017-06-03 20:00] VITALS: BP 149/77
[2017-06-04] VITALS: BP 111/49
[2017-06-04 06:05] LABS: BASO % 0.5 % (0.0-1.0); EOS # 0.4 10*3/uL (0.0-0.4); EOS % 10.5 % (1.0-4.0); HEMATOCRIT 26.5 % (37.0-47.0); HEMOGLOBIN 8.6 g/dl (12.0-16.0); LYMPH # 0.9 10*3/uL (1.3-4.4); LYMPH % 23.7 % (27.0-41.0); MEAN CORPUSCULAR HGB 29.9 pg (27.0-31.0); MEAN CORPUSCULAR HGB CONC 32.5 g/dl (33.0-37.0); MEAN PLATELET VOLUME 10.7 fl (9.6-12.3); MONO # 0.3 10*3/uL (0.1-1.0); MONO % 7.5 % (3.0-9.0); NEUT # 2.2 10*3/uL (2.3-7.9); NEUT % 57.8 % (47.0-73.0); PLATELET COUNT AUTOMATED 80 10*3/uL (130-400); RED BLOOD COUNT 2.88 10*6/uL (4.10-5.10); WHITE BLOOD COUNT 3.7 10*3/uL (4.8-10.8)
[2017-06-04 06:18] LABS: ALBUMIN 2.4 gm/dl (3.1-4.5); CREATININE 6.82 mg/dL (0.55-1.02); POTASSIUM 4.2 mmol/L (3.5-5.1); TOTAL PROTEIN 5.9 gm/dL (6.4-8.2)
--- NOTE | 2017-06-04 07:51 | NUR ---
Patient remains asleep from IV ativan given by nursing 06/03/17 am. Nurse who gave ativan reports that patient had not slept for 5 days prior. OTR will attempt OT evaluation at a later time. Glenny Gregory OTR/coco
[2017-06-04 08:00] VITALS: BP 120/56
--- NOTE | 2017-06-04 10:08 | NUR ---
PHYSICAL THERAPY Edyta seen this AM X 2, and sleeping very sound, Pt with 1:1 sitter. Will check back later todaty. MADELIN WOODWARD BEHAVIOR ANALYST.
[2017-06-04 12:00] VITALS: BP 158/78
--- NOTE | 2017-06-04 12:00 | NUR ---
PT RESTING IN BED. FAMILY AT BEDISDE. PT REFUSES FURNACE OPERATOR. 1:1 DISCONTINUED. RESPIRATIONS EASY AND REGULAR. WILL CONTINUE TO MONITOR.
--- NOTE | 2017-06-04 12:53 | NUR ---
PHYSICAL THERAPY Back this PM to see Edyta and she said NO walk, i am going to stay on bed, Pt is to go for her dialysis treatment this PM. MADELIN WOODWARD ADVERTISING ANALYST.
--- NOTE | 2017-06-04 13:29 | NUR ---
PT TO 5TH FLOOR FOR DIALYSIS.
--- NOTE | 2017-06-04 15:55 | NUR ---
Patient not available for OT evaluation as she is in dialysis. OTR will recheck at a later date. Glenny Gregory OTR/l
[2017-06-04 16:00] VITALS: BP 126/55
--- NOTE | 2017-06-04 18:25 | NUR ---
PT RETURNED FROM DIALYSIS. 1.4 KILOS REMOVED PER DIALYSIS NURSE. PT SITTING UP IN BED EATING DINNER. REPSIRATIONS EASY AND REGULAR. PT ORIENTED TO PERSON AND TIME AT PRESENT. REFUSES INSPECTOR METAL FABRICATING. WILL CONTINUE TO MONITOR.
--- NOTE | 2017-06-04 19:20 | NUR ---
PT. ALERT AND ORIENTED TO SELF ONLY. PT. RE-ORIENTED TO PLACE AND TIME. LUNG SOUNDS DIMINISHED THROUGHOUT, PT. DENIES SOB AT THIS TIME. S1S2, REGULAR, TRACE EDEMA, PPP. NORMOACTIVE BOWEL SOUNDS X 4 QUADS, DENIES N/V/D. SKIN WARM, DRY AND FLAKY, NO SKIN TEARS PRESENT. CALL LIGHT WITHIN REACH, BED IN LOWEST POSITION, WHEELS LOCKED.
[2017-06-04 20:00] VITALS: BP 124/68
--- NOTE | 2017-06-04 20:10 | NUR ---
ONE ON ONE WITH PT. DISCUSSING RE-APPLICATION OF HER APPLICATION PERFORMANCE ENGINEER. PT. REFUSED TO HAVE IT PUT BACK ON. CALLED DR. RAO AT THIS TIME TO MAKE HIM AWARE THAT THE PT. IS CONTINUING TO REFUSE THE APPLICATION PERFORMANCE ENGINEER. NO NEW ORDERS AT THIS TIME.
--- NOTE | 2017-06-04 22:58 | NUR ---
PT. REQUESTED MEDICINE FOR RELIEF OF PAIN RADIATING FROM TESSIO-CATHETER SITE. SITE ASSESED, DRESSING HAD BEEN REMOVED. STERISITE AND GUAZE APPLIED TO KEEP PT. FROM PULLING AT SITE. ACETAMINOPHEN 650MG ADM. FOR PAIN RELIEF. CALL LIGHT WITHIN REACH, BED IN LOWEST POSITION, WHEELS LOCKED.
--- NOTE | 2017-06-04 23:11 | NUR ---
CHART CHECK COMPLETED AT THIS TIME.
[2017-06-05] VITALS: BP 145/85
--- NOTE | 2017-06-05 02:01 | NUR ---
PT. AGITATED, ATTEMPTING TO PULL OUT TESSIO, YELLING FOUL OBSCENITIES, PACING AROUND ROOM. DR. RAO NOTIFIED, STATES HE WILL PUT IN ORDERS.
[2017-06-05 07:21] LABS: BASO % 0.8 % (0.0-1.0); EOS # 0.4 10*3/uL (0.0-0.4); EOS % 9.7 % (1.0-4.0); HEMATOCRIT 25.9 % (37.0-47.0); HEMOGLOBIN 8.6 g/dl (12.0-16.0); LYMPH # 0.9 10*3/uL (1.3-4.4); LYMPH % 26.2 % (27.0-41.0); MEAN CELL VOLUME 92.2 fl (81.0-99.0); MEAN CORPUSCULAR HGB 30.6 pg (27.0-31.0); MEAN CORPUSCULAR HGB CONC 33.2 g/dl (33.0-37.0); MEAN PLATELET VOLUME 10.8 fl (9.6-12.3); MONO # 0.3 10*3/uL (0.1-1.0); MONO % 8.1 % (3.0-9.0); NEUT % 55.2 % (47.0-73.0); PLATELET COUNT AUTOMATED 87 10*3/uL (130-400); RED BLOOD COUNT 2.81 10*6/uL (4.10-5.10); WHITE BLOOD COUNT 3.6 10*3/uL (4.8-10.8)
[2017-06-05 07:31] LABS: ALBUMIN 2.4 gm/dl (3.1-4.5); CREATININE 3.78 mg/dL (0.55-1.02); POTASSIUM 3.7 mmol/L (3.5-5.1); TOTAL PROTEIN 6.2 gm/dL (6.4-8.2)
[2017-06-05 12:00] VITALS: BP 98/85
--- NOTE | 2017-06-05 15:24 | NUR ---
PATIENT UP OUT OF BED, ATTEMPTED TO LEAVE FLOOR. NURSE ALERTED AND CALLED TREY NAVARRETE, ORDERED 1MG ATIVAN NOW. PATIENT REDIRECTED AND MEDICATION GIVEN WHILE PATIENT IN BED.WILL MONITOR EFFECT.
[2017-06-05 16:00] VITALS: BP 104/68
--- NOTE | 2017-06-05 16:30 | NUR ---
PT RESTING CALMLY IN BED AT THIS TIME. ATIVAN APPEARS EFFECTIVE. RESPIRATIONS EASY AND REGULAR. BED ALARM ENGAGED FOR PT'S SAFETY.
--- NOTE | 2017-06-05 20:25 | NUR ---
PT RESTING IN BED, NO DISTRESS NOTED. RESP EASY AND NON-LABORED. CALL LIGHT WITHIN REACH OF PT, BED ALARM ENGAGED.
[2017-06-06] VITALS: BP 117/63
--- NOTE | 2017-06-06 04:44 | NUR ---
PATIENT RESTING IN BED WITH EYES CLOSED. SLEPT WELL THROUGHOUT SHIFT. NO SIGNS OR SYMPTOMS OF DISTRESS NOTED. WILL CONTINUE TO MONITOR. CALL LIGHT IN REACH.
[2017-06-06 05:58] LABS: BASO % 0.7 % (0.0-1.0); EOS # 0.3 10*3/uL (0.0-0.4); EOS % 7.6 % (1.0-4.0); HEMATOCRIT 30.7 % (37.0-47.0); HEMOGLOBIN 9.9 g/dl (12.0-16.0); LYMPH # 1.3 10*3/uL (1.3-4.4); LYMPH % 29.3 % (27.0-41.0); MEAN CELL VOLUME 93.9 fl (81.0-99.0); MEAN CORPUSCULAR HGB 30.3 pg (27.0-31.0); MEAN CORPUSCULAR HGB CONC 32.2 g/dl (33.0-37.0); MEAN PLATELET VOLUME 10.5 fl (9.6-12.3); MONO # 0.3 10*3/uL (0.1-1.0); MONO % 6.5 % (3.0-9.0); NEUT # 2.4 10*3/uL (2.3-7.9); NEUT % 55.7 % (47.0-73.0); PLATELET COUNT AUTOMATED 98 10*3/uL (130-400); RED BLOOD COUNT 3.27 10*6/uL (4.10-5.10); RED CELL DISTRI WIDTH 14.3 % (0-14.5); WHITE BLOOD COUNT 4.3 10*3/uL (4.8-10.8)
[2017-06-06 06:24] LABS: CREATININE 5.32 mg/dL (0.55-1.02); MAGNESIUM 2.2 mg/dL (1.5-2.1); PHOSPHOROUS 2.5 mg/dL (2.5-4.9); POTASSIUM 4.2 mmol/L (3.5-5.1)
[2017-06-06 08:00] VITALS: BP 127/74
--- NOTE | 2017-06-06 09:02 | NUR ---
PT GIVEN PRN PO ATIVAN FOR SIGNS OF AGITATION. WILL MONITOR EFFECTIVENESS.
[2017-06-06 12:00] VITALS: BP 100/56
[2017-06-06 16:00] VITALS: BP 110/63
[2017-06-06 20:00] VITALS: BP 107/57
--- NOTE | 2017-06-06 20:00 | NUR ---
ASSUMED CARE OF PATIENT. ASSESSMENT COMPLETE. RESTING IN BED WITH NO COMPLAINTS. BED ALARM ON. CALL LIGHT IN REACH. WILL CONTINUE TO MONITOR.
--- NOTE | 2017-06-06 22:00 | NUR ---
PT CONFUSED, UNABLE TO COMPLETE DAILY MED REC REVIEW
[2017-06-07] VITALS: BP 115/56
--- NOTE | 2017-06-07 02:00 | NUR ---
PT SON AT BEDSIDE. PT DENIES ANY NEEDS AT THIS TIME. CALL LIGHT IN REACH. WILL CONTINUE TO MONITOR.
--- NOTE | 2017-06-07 02:23 | NUR ---
MEDICATED WITH PRN TYLENOL AND ZOFRAN FOR C/O ABDOMINAL PAIN AND NAUSEA. WILL MONITOR FOR EFFECTIVENESS.
[2017-06-07 08:00] VITALS: BP 154/86
--- NOTE | 2017-06-07 09:01 | NUR ---
Awakened for Assessment. Pleasent anc c0-operative. [facility] Son called in , Stated that he and his brother had spoken and wish for hospice care and no further dialysis. Dr. hoyt aware of family wishes.
[2017-06-07 12:00] VITALS: BP 156/88
--- NOTE | 2017-06-07 14:00 | NUR ---
Found nude in the bathroom w/ dressing off of tessio. attempting to remove sutures. Redressed and assisted into bed. Family called in ie: code status expressed wish to make pt. comfort care and stop dialysis Dr. Hoyt aware.
--- NOTE | 2017-06-07 15:44 | NUR ---
FAMILY HERE AT THIS TIME, FAMILY HAS DECIDED TO WITHDRAWAL DIALYSIS AND TO MAKE PT A COMFORT CARE. THEY STATED AFTER ALL DISCUSSIONS WITH THE DOCTORS THAT IT IS IN THE BEST INTEREST FOR THE PT. DNR-CC SIGNED AT THIS TIME. STATED THEY WOULD NOT BE ABLE TO TAKE CARE OF HER AT HOME, THAT THEY WILL NEED EITHER 24/7 CARE AT HOME OR FOR PT TO BE PLACED IN PT HOSPICE. NOTIFIED DR BOYKIN OF THIS. 2 RN'S WITNESSED DNR-CC AT THIS TIME UNTIL PHYSICIAN CAN SIGN.
--- NOTE | 2017-06-07 15:55 | NUR ---
CALL PLACED TO [facility] REGARDING STARTING PT WITH HOSPICE SERVICES.
[2017-06-07 16:00] VITALS: BP 124/54
--- NOTE | 2017-06-07 16:11 | NUR ---
EMELY FROM [facility] RETURNED CALL, INFORMATION PROVIDED REGARDING FAMILIES REQUEST. STATED SHE WOULD NEED SOME INFO FAXED. INFO WILL BE FAXED.
--- NOTE | 2017-06-07 17:08 | NUR ---
PT AGITATED AT THIS TIME, TRYING TO PULL DRESSING OFF RIGHT CHEST TO DILAYSIS CATHETER. REORIENT PT FREQUENTLY, ASSISTED PT BACK TO BED. ATIVAN PO GIVEN FOR AGITATION. BED ALARM ON AT THIS TIME.
--- NOTE | 2017-06-07 18:19 | NUR ---
PT RESTING IN BED MORE CALMLY. FAMILY AT BEDSIDE. ATIVAN APPEARS EFFECTIVE.
[2017-06-07 20:00] VITALS: BP 100/48
--- NOTE | 2017-06-07 20:00 | NUR ---
ASSUMED CARE OF PATIENT. ASSESSMENT COMPLETE. RESTING IN BED. BED ALARM ON. CALL LIGHT IN REACH. WILL CONTINUE TO MONITOR.
--- NOTE | 2017-06-07 20:35 | NUR ---
PT CONFUSED, UNABLE TO COMPLETE DAILY MED REC
[2017-06-08] VITALS: BP 100/50
--- NOTE | 2017-06-08 02:00 | NUR ---
SLEEPING. RESP EASY AND NONLABORED ON ROOM AIR. NO DISTRESS NOTED. BED ALARM ON. CALL LIGHT IN REACH. WILL CONTINUE TO MONITOR.
--- NOTE | 2017-06-08 06:18 | NUR ---
PT REFUSING AM MEDS
[2017-06-08 08:00] VITALS: BP 151/78
--- NOTE | 2017-06-08 08:12 | NUR ---
PT MEDICATED WITH ATIVAN 1MG PO FOR AGITATION AND RESTLESSNESS. WANDERING AROUND THE ROOM AND IN TO HALLWAY FULLY CLOTHED WITH PURSE LOOKING TO LEAVE.
--- NOTE | 2017-06-08 08:45 | NUR ---
PHYSICAL THERAPY Patient presented to therapy sitting at EOB and reports no complaints or concerns. Patient agreed to therapy treatment. Patient identified by name and date of . Patient perforemd gait with no AD and CGA X 1 for 200 ft. x 1. Patient performed ther ex in seated position x 15 reps for strengthening the racquel. LEs and improving balance and functional mobility. KAELYN DALAL - [facility]
--- NOTE | 2017-06-08 09:00 | NUR ---
community development planner is working with patient and family regarding discharge arrangements, case management will follow
--- NOTE | 2017-06-08 11:16 | NUR ---
Talked with Luh at intake from [facility]. They are sending an RN to complete and assessment of this patient. Also explained to them the family is now requesting patient go home with john. Talked with son Cristi about his plans to have his mother go home with hospice and stated he may need a couple of days for them to get things in order. I asked that we wait for the hospice nurse to arrive and discuss plans with them and then we can go from there.
[2017-06-08 12:00] VITALS: BP 104/47
--- NOTE | 2017-06-08 14:00 | NUR ---
[facility] NURSE HERE TO SPEAK WITH PT'S FAMILY AND EVALUATE PT.
--- NOTE | 2017-06-08 15:31 | NUR ---
Family requested information on "soft diet" in order to provide food for patient at home. Contacted Meeta Sandhu in Dietary, who provided a printed document to the family. Received call from Karma/[facility] who stated she discussed home with hospice care with family and that the needed equipment will be delivered to the home today. Also requested someone calls with a time of discharge. JACQUELINE Santiago stated patient will not be discharged until the central line can be removed and she doesn't think this will happen today. Will notify hospice of possible discharge tomorrow.
[2017-06-08 16:00] VITALS: BP 93/56
[2017-06-08 20:00] VITALS: BP 106/59
--- NOTE | 2017-06-08 20:00 | NUR ---
ASSUMED CARE OF PATIENT. ASSESSMENT COMPLETE. PT DROWSY. RESTING IN BED. BED ALARM ON. CALL LIGHT IN REACH.
[2017-06-09] VITALS: BP 108/54
--- NOTE | 2017-06-09 00:42 | NUR ---
PT RESTING IN BED, CALL LIGHT IN REACH, SEE SHIFT ASSEMEMNT FOR FURTHER DETAILS
--- NOTE | 2017-06-09 04:50 | NUR ---
PT SLEEPIPING, EASY BREATHING, CALL LIGHT IN REACH
--- NOTE | 2017-06-09 06:00 | NUR ---
ROUTINE ROUNDS AND MEDS. CALL LIGHT IN REACH.
[2017-06-09 08:00] VITALS: BP 120/63
--- NOTE | 2017-06-09 08:00 | NUR ---
RESTING QUIETLY IN BED, NO C/O NO DISTRESS NOTED. PLEASANT AND COOPERATIVE AT THIS TIME. SEE SHIFT ASSESSMENT.
--- NOTE | 2017-06-09 08:33 | NUR ---
Patient is to be discharged today with hospice in the home. No further OT required. D/C OT referral. Glenny Gregory Otr/L
--- NOTE | 2017-06-09 09:00 | NUR ---
SON CALLED AND WANTED TO KNOW WHAT TIME HIS MOTHER WAS HAVING CATHETER OUT THIS TODAY. STATED THEY TALKED WITH HOSPICE YESTERDAY AND THAT THEY NO LONGER WANT PT TO HAVE DIALYSIS. THEY WANT TO TAKE HER HOME UNDER HOSPICE CARE.
--- NOTE | 2017-06-09 09:15 | NUR ---
SPOKE WITH DR LACEY ABOUT REMOVING DIAYSIS CATH. STATES HE CAN TAKE IT OUT BUT WANTS TO SPEAK WITH PRIMARY MD FIRST. DR Andrae BOYKIN NOTIFIED AND WILL CALL HIM.
--- NOTE | 2017-06-09 10:02 | NUR ---
PHYSICAL THERAPY Edyta seen this AM 1:1 for her therapy session. Gait into Pt's bathroom to use the commode CGA X 1. Followed by gait total 215' X 1, CGA X 1, with verbal cueing for gait, turn safety, and one standing balance looking out the window. When Pt got back to her room all she wanted to do was go back to bed, treatment time 25 min. MADELIN WOODWARD APPLE THINNER.
--- NOTE | 2017-06-09 11:02 | NUR ---
TO IR VIA WHEELCHAIR TO HAVE DIALYSIS PORT REMOVED.
--- NOTE | 2017-06-09 11:39 | NUR ---
PT RETURNED FROM IR. DIALYSIS CATH REMOVED. STERI STRIPS INTACT OVER REMOVAL SITE. NO BLEEDING NOTED. WILL CONTINUE TO MONITOR.
[2017-06-09 12:00] VITALS: BP 137/65
[2017-06-09] MEDS ORDERED: PANTOPRAZOLE SO40 MG PO (13:21)
[2017-06-09] MEDS ORDERED: CALCIUM ACETAT667 MG PO (13:21)
[2017-06-09] MEDS ORDERED: RIVASTIGMINE1 EACH T (13:21)
[2017-06-09] MEDS ORDERED: HYDROXYZINE PAM25 M1 PO (13:21)
[2017-06-09] MEDS ORDERED: VITAMIN D400 UNI1 PO (13:21)
[2017-06-09] MEDS ORDERED: AMLODIPINE BESYL5 MG PO (13:21)
[2017-06-09] MEDS ORDERED: RISPERIDONE0.5 MG PO (13:21)
[2017-06-09] MEDS ORDERED: LORAZEPAM1 MG PO (13:21)
[2017-06-09] MEDS ORDERED: MIRTAZAPINE15 M2 PO (13:21)
--- NOTE | 2017-06-09 14:30 | NUR ---
DISHARGED TO HOME IN CARE OF SON. INSTRUCTIONS AND PERSCRIPTIONS REVIEWED WITH SON. PT GOING HOME UNDER HOSPICE CARE.
--- NOTE | 2017-06-10 08:05 | NUR ---
PHYSICAL THERAPY CO-SIGN I approve of the Phyical Therapy notes written above. KEANU DE LA GARZA PT
== END 2017-06-09 14:30 | disposition hospice, home (50) | DRG 377 ==
LOC: ED 11:26 → 4E 13:14 → EDHOLD 13:14 → ICCU 13:14 → 4E 05-25 13:15
PROVIDERS: Emergency Medicine; Family Medicine; Internal Medicine; Internal Medicine Hematology & Oncology; Internal Medicine Nephrology; Obstetrics & Gynecology; ADMIT Internal Medicine
PROC: 0DB68ZX Excision of Stomach, Via Natural or Artificial Opening Endoscopic, Diagnostic (ICD-10-PCS; principal; 2017-05-28)
PROC: 5A1D60Z (ICD-10-PCS; 2017-05-31)
PROC: 30233N1 Transfusion of Nonautologous Red Blood Cells into Peripheral Vein, Percutaneous Approach (ICD-10-PCS; 2017-05-31)
PROC: B5181ZA Fluoroscopy of Superior Vena Cava using Low Osmolar Contrast, Guidance (ICD-10-PCS; 2017-06-01)
PROC: 02HV33Z Insertion of Infusion Device into Superior Vena Cava, Percutaneous Approach (ICD-10-PCS; 2017-06-01)
PROC: 02PYX3Z Removal of Infusion Device from Great Vessel, External Approach (ICD-10-PCS; 2017-06-09)
DX: K29.61 Other gastritis with bleeding (principal); N17.0 Acute kidney failure with tubular necrosis; G93.41 Metabolic encephalopathy; D61.818 Other pancytopenia; C90.00 Multiple myeloma not having achieved remission; J84.10 Pulmonary fibrosis, unspecified; R18.8 Other ascites; N39.0 Urinary tract infection, site not specified; Z68.1 Body mass index [BMI] 19.9 or less, adult; E87.1 Hypo-osmolality and hyponatremia; F20.0 Paranoid schizophrenia; F33.9 Major depressive disorder, recurrent, unspecified; Z66 Do not resuscitate; Z51.5 Encounter for palliative care; R31.9 Hematuria, unspecified; E86.0 Dehydration; E53.8 Deficiency of other specified B group vitamins; E87.5 Hyperkalemia; R63.6 Underweight; E87.8 Other disorders of electrolyte and fluid balance, not elsewhere classified; E83.41 Hypermagnesemia; D89.0 Polyclonal hypergammaglobulinemia; R73.9 Hyperglycemia, unspecified; H40.9 Unspecified glaucoma; E78.5 Hyperlipidemia, unspecified; R19.5 Other fecal abnormalities; Z60.2 Problems related to living alone; I35.0 Nonrheumatic aortic (valve) stenosis; I12.9 Hypertensive chronic kidney disease with stage 1 through stage 4 chronic kidney disease, or unspecified chronic kidney disease; N18.9 Chronic kidney disease, unspecified; G30.9 Alzheimer's disease, unspecified; F02.80 Dementia in other diseases classified elsewhere, unspecified severity, without behavioral disturbance, psychotic disturbance, mood disturbance, and anxiety; K44.9 Diaphragmatic hernia without obstruction or gangrene; D63.8 Anemia in other chronic diseases classified elsewhere; E83.39 Other disorders of phosphorus metabolism; Z83.6 Family history of other diseases of the respiratory system; Z82.49 Family history of ischemic heart disease and other diseases of the circulatory system; Z99.2 Dependence on renal dialysis